=== PATIENT | female | born 1940 | race Caucasian/White ===

== ENCOUNTER → 2017-02-14 | Outpatient (CLI) | payer MEDICARE ==
[~2017-02-14] MED LIST: ASCO500T16 PO; CHOL1000 PO; CLON1TAB3 PO; CRANBERRY SUPPLEMENT PO; HYDR12.56 PO; LISI-461 PO; MULT-506 PO; NIFE10CA20 PO; NITR1CAP16 PO; OXYC1TAB3 PO; PARO1TAB27 PO; PARO1TAB29 PO; PENT100C6 PO; POTA10CA28 PO; PRED1SUS3; SIMV40TA2 PO
[2017-02-14 17:26] LABS: BASO % 0.2 %; BASO ABS # 0.02 K/uL (0-0.2); COMPLETE YES; EOS % 2.4 %; IG% 0.5 %; LYMPH % 26.3 %; LYMPH ABS # 2.65 K/uL (1.2-3.4); MEAN CELL VOLUME 89.7 fL (80-100); MEAN CORPUSCULAR HEMOGLOBIN 30.8 pg (25-34); MEAN CORPUSCULAR HGB CONC 34.3 g/dl (32-36); MEAN PLATELET VOLUME 9.9 fL (7.4-10.4); MONO % 7.4 %; NEUT % 63.2 %; PLATELET COUNT 277 K/uL (130-400); RED BLOOD COUNT 5.13 M/uL (4.2-5.4); WHITE BLOOD COUNT 10.09 K/uL (4.8-10.8)
== END | disposition home or self-care (01) ==
LOC: C.LABBFT 11:16
PROVIDERS: ATTEND Physician Assistant Medical
DX: R73.01 Impaired fasting glucose (principal)

== ENCOUNTER → 2017-02-17 | Outpatient (CLI) | payer MEDICARE ==
[2017-02-17 16:57] LABS: ALT/SGPT 41 U/L (12-78); AST/SGOT 20 U/L (15-37); BLOOD UREA NITROGEN 23 mg/dl (7-18); BUN/CREATININE RATIO 29.1 (10-20); CALCIUM 9.5 mg/dl (8.5-10.1); CARBON DIOXIDE 30 mmol/L (21-32); CHLORIDE 101 mmol/L (98-107); CHOLESTEROL 160 mg/dl (0-200); GLUCOSE 100 mg/dl (70-99); POTASSIUM 3.1 mmol/L (3.5-5.1); SODIUM 141 mmol/L (136-145); TRIGLYCERIDES 93 mg/dl (0-150); VERY LOW DENSITY LIPOPROT CALC 19 mg/dl
[2017-02-17 17:00] LABS: ALB/GLOB RATIO 1.3 (0.9-2); ALKALINE PHOSPHATASE 92 U/L (45-117); CHOLESTEROL/HDL RATIO 2.1; HDL CHOLESTEROL 75 mg/dl; LDL CHOLESTEROL CALCULATED 66 mg/dl
[2017-02-18 06:04] LABS: ESTIMATED AVERAGE GLUCOSE 128 mg/dl; HA1C FLAG Normal (Normal)
== END | disposition home or self-care (01) ==
LOC: C.LABBFT 15:26
PROVIDERS: ATTEND Physician Assistant Medical
DX: E78.5 Hyperlipidemia, unspecified (principal); R73.01 Impaired fasting glucose

== ENCOUNTER → 2017-02-24 | Outpatient (CLI) | payer MEDICARE ==
[2017-02-24 12:30] LABS: BLOOD UREA NITROGEN 20 mg/dl (7-18); BUN/CREATININE RATIO 20.4 (10-20); CALCIUM 9.5 mg/dl (8.5-10.1); CARBON DIOXIDE 32 mmol/L (21-32); CHLORIDE 101 mmol/L (98-107); CREATININE 0.97 mg/dl (0.60-1.20); GLUCOSE 156 mg/dl (70-99); POTASSIUM 3.4 mmol/L (3.5-5.1); SODIUM 142 mmol/L (136-145); URINE APPEARANCE CLEAR (CLEAR); URINE BILIRUBIN NEG (NEG); URINE COLOR DK YELLOW; URINE EPITHELIAL CELL AUTO >30 /lpf (0-5); URINE NITRITE POS (NEG); URINE SPECIFIC GRAVITY 1.018 (1.000-1.030); UROBILINOGEN NEG (NEG)
[2017-02-24 12:40] LABS: MANUAL MICROSCOPIC REQUIRED? NO; REVIEW REQ? NO
== END | disposition home or self-care (01) ==
LOC: C.LABBFT 10:00
PROVIDERS: ATTEND Physician Assistant Medical
DX: E87.6 Hypokalemia (principal); R39.9 Unspecified symptoms and signs involving the genitourinary system

== ENCOUNTER → 2017-03-03 | Outpatient (CLI) | payer MEDICARE ==
[2017-03-03 12:25] LABS: BLOOD UREA NITROGEN 17 mg/dl (7-18); BUN/CREATININE RATIO 20.6 (10-20); CARBON DIOXIDE 31 mmol/L (21-32); CHLORIDE 105 mmol/L (98-107); CREATININE 0.82 mg/dl (0.60-1.20); GLUCOSE 103 mg/dl (70-99); POTASSIUM 3.6 mmol/L (3.5-5.1); SODIUM 142 mmol/L (136-145)
[2017-03-03 12:42] LABS: CALCIUM 9.3 mg/dl (8.5-10.1)
== END | disposition home or self-care (01) ==
LOC: C.LABBFT 10:49
PROVIDERS: ATTEND Physician Assistant Medical
DX: E87.6 Hypokalemia (principal)

== ENCOUNTER → 2017-03-22 | Outpatient (CLI) | payer MEDICARE ==
--- NOTE | 2017-03-23 08:17 | MAMMOGRAPHY REPORT ---
BILATERAL DIGITAL SCREENING MAMMOGRAM WITH CAD: 03/22/2017 CLINICAL HISTORY: Routine screening. Patient has no complaints. TECHNIQUE: Current study was also evaluated with a Computer Aided Detection (CAD) system. Bilatera l CC and MLO views were obtained. COMPARISON: Comparison is made to exams dated: 03/04/2016 mammogram, 12/29/2014 mammogram, 12/25/2013 mammogram, 12/24/2012 mammogram, 12/21/2011 mammogram, and 12/20/2010 mammogram - [facility] enter. BREAST COMPOSITION: The tissue of both breasts is almost entirely fatty. FINDINGS: There is a nodular 4 mm focal asymmetry in the left upper outer quadrant, for which spot compression tomosynthesis views and possible breast ultrasound are recommended for further evaluatio n. The remainder of both breasts are stable compared to prior exams, without suspicious masses, calcifi cations, or areas of architectural distortion noted. IMPRESSION: ACR BI-RADS CATEGORY 0: INCOMPLETE EVALUATION: NEED ADDITIONAL IMAGING EVALUATION Left upper outer quadrant asymmetry, for which additional imaging evaluation is recommended. The pa tient will be called to schedule an appointment. Approximately 10% of breast cancers are not detected with mammography. A negative mammographic repor t should not delay biopsy if a clinically suggestive mass is present. Whitney Dillard M.D. ah/:03/22/2017 17:05:18 Lead Java [id number] Developer: Judy SNIDER(R)(M), [facility] letter sent: Addl Imaging 0 BI-RADS Code: ACR BI-RADS Category 0: Incomplete Evaluation: Need Additional Imaging Evaluation
== END | disposition home or self-care (01) ==
LOC: C.MAMM 14:06
PROVIDERS: ATTEND Internal Medicine
DX: Z12.31 Encounter for screening mammogram for malignant neoplasm of breast (principal); N64.89 Other specified disorders of breast

== ENCOUNTER → 2017-04-03 | Outpatient (CLI) | payer MEDICARE ==
[~2017-04-03] MED LIST changes: -HYDR12.56 PO
--- NOTE | 2017-04-03 13:04 | MAMMOGRAPHY REPORT ---
UNILATERAL LEFT DIGITAL DIAGNOSTIC MAMMOGRAM TOMOSYNTHESIS AND TARGETED LEFT ULTRASOUND: 04/03/2017 CLINICAL HISTORY: 76-year-old woman called back from screening mammography for a 4 mm nodular focal asymmetry in the left upper outer quadrant. TECHNIQUE: Spot compression left CC and MLO digital and tomosynthesis images were obtained. COMPARISON: Comparison is made to exams dated: 03/22/2017 mammogram, 03/04/2016 mammogram, 12/29/2014 mammogram, 12/25/2013 mammogram, 12/24/2012 mammogram, and 12/26/2011 mammogram - [facility]. BREAST COMPOSITION: The tissue of the left breast is almost entirely fatty. FINDINGS: On the spot compression left CC view, there is persistence of a 4.0 x 2.7 mm oval circums cribed mass in the lateral, middle one third of the left breast. No associated architectural distor tion or clustered microcalcification. This is not as well-seen on the spot compression MLO view, bu t was thought to project superiorly based on the full field left MLO view performed 03/22/2017. Fur ther evaluation with ultrasound was performed. Targeted ultrasound was performed in the lateral left breast. In the 3:00 axis, 3 cm from the nippl e, there is an oval parallel circumscribed anechoic cyst versus focal duct ectasia measuring 2.4 x 1 .0 x 3.3 mm. This may correlate with the mammographic mass but given the small size, it does not me et all the criteria for a simple cyst and a short interval follow-up diagnostic mammogram and ultras ound is recommended to ensure stability in 6 months. IMPRESSION: ACR-BI-RADS CATEGORY 3: PROBABLY BENIGN, TARGETED ULTRASOUND ACR-BI-RADS CATEGORY 3: AK OBABLY BENIGN The 4 mm nodular focal asymmetry in the left upper outer quadrant is thought to correlate with a juice ign simple cyst versus duct ectasia in the 3:00 left breast identified on ultrasound. However, give n the small size it does not meet all the criteria for a simple cyst and a short interval follow-up diagnostic left mammogram and repeat targeted ultrasound is recommended to ensure stability in 6 mon ths. These results and recommendations were discussed with the patient at the time of the exam. She tent atively scheduled the follow-up appointment prior to leaving our department. Approximately 10% of breast cancers are not detected with mammography. A negative mammographic repor t should not delay biopsy if a clinically suggestive mass is present. Anahi Mauricio M.D. ay/:04/03/2017 12:23:59 Vocational Evaluator: Lily ROMERO)(Basilio), [facility] letter sent: Follow Up Recommended 3 BI-RADS Code: ACR-BI-RADS Category 3: Probably Benign Ultrasound BI-RADS: ACR-BI-RADS Category 3: P robably Benign
== END | disposition home or self-care (01) ==
LOC: C.MAMM 11:28
PROVIDERS: ATTEND Internal Medicine
DX: R92.8 Other abnormal and inconclusive findings on diagnostic imaging of breast (principal)

== ENCOUNTER → 2017-04-11 | Outpatient (CLI) | payer MEDICARE | END | disposition home or self-care (01) | LOC: C.LABSPEC 17:42 | PROVIDERS: ATTEND Nurse Practitioner | DX: R39.9 Unspecified symptoms and signs involving the genitourinary system (principal) ==

== ENCOUNTER → 2017-04-13 | Outpatient (CLI) | payer MEDICARE | END | disposition home or self-care (01) | LOC: C.LABBFT 09:54 | PROVIDERS: ATTEND Nurse Practitioner | DX: R39.9 Unspecified symptoms and signs involving the genitourinary system (principal) ==

== ENCOUNTER → 2017-04-26 | Outpatient (CLI) | payer MEDICARE ==
[2017-04-26 17:46] LABS: URINE APPEARANCE CLEAR (CLEAR); URINE BILIRUBIN NEG (NEG); URINE COLOR DK YELLOW; URINE EPITHELIAL CELL AUTO >30 /lpf (0-5); URINE NITRITE NEG (NEG); URINE PH 7.5 (4.5-7.5); URINE SPECIFIC GRAVITY 1.021 (1.000-1.030); UROBILINOGEN NEG (NEG)
[2017-04-26 17:50] LABS: MANUAL MICROSCOPIC REQUIRED? NO; REVIEW REQ? YES
== END | disposition home or self-care (01) ==
LOC: C.LABBFT 11:55
PROVIDERS: ATTEND Nurse Practitioner
DX: R39.9 Unspecified symptoms and signs involving the genitourinary system (principal)

== ENCOUNTER → 2017-05-29 | Outpatient (CLI) | payer MEDICARE ==
[~2017-05-29] MED LIST changes: -LISI-461 PO; -NITR1CAP16 PO; -PARO1TAB27 PO
== END | disposition home or self-care (01) ==
LOC: C.LABSPEC 17:27
PROVIDERS: ATTEND Urology
DX: N30.10 Interstitial cystitis (chronic) without hematuria (principal)

== ENCOUNTER → 2017-08-10 | Outpatient (CLI) | payer MEDICARE ==
[2017-08-10 17:29] LABS: URINE APPEARANCE CLEAR (CLEAR); URINE BILIRUBIN NEG (NEG); URINE COLOR YELLOW; URINE EPITHELIAL CELL AUTO 20-30 /lpf (0-5); URINE NITRITE NEG (NEG); URINE PH 8.5 (4.5-7.5); UROBILINOGEN NEG (NEG)
[2017-08-10 17:31] LABS: MANUAL MICROSCOPIC REQUIRED? NO; REVIEW REQ? NO
== END | disposition home or self-care (01) ==
LOC: C.LABBFT 12:57
PROVIDERS: ATTEND Physician Assistant Medical
DX: R39.9 Unspecified symptoms and signs involving the genitourinary system (principal)

== ENCOUNTER → 2017-08-30 | Outpatient (CLI) | payer MEDICARE | END | disposition home or self-care (01) | LOC: C.LABSPEC 17:08 | PROVIDERS: ATTEND Urology | DX: N30.10 Interstitial cystitis (chronic) without hematuria (principal) ==

== ENCOUNTER → 2017-09-26 | Outpatient (CLI) | payer MEDICARE ==
[2017-09-26 17:33] LABS: BLOOD UREA NITROGEN 12 mg/dl (7-18); BUN/CREATININE RATIO 16.6 (10-20); CALCIUM 9.2 mg/dl (8.5-10.1); CARBON DIOXIDE 26 mmol/L (21-32); CHLORIDE 107 mmol/L (98-107); CREATININE 0.73 mg/dl (0.60-1.20); GLUCOSE 80 mg/dl (70-99); SODIUM 143 mmol/L (136-145)
== END | disposition home or self-care (01) ==
LOC: C.LABBFT 13:53
PROVIDERS: ATTEND Internal Medicine
DX: R63.4 Abnormal weight loss (principal); M85.80 Other specified disorders of bone density and structure, unspecified site; E87.6 Hypokalemia

== ENCOUNTER → 2017-09-29 | Outpatient (CLI) | payer MEDICARE ==
[~2017-09-29] MED LIST changes: +GADAVIST IV PRN
--- NOTE | 2017-09-29 08:47 | DIAGNOSTIC IMAGING REPORT ---
LUMBAR SPINE COMBINATION CLINICAL HISTORY: 76 years-old Female presenting with M48.00 Spinal ksskholhV65.9 Chronic back painR29.898 Weakness, difficulty walking or standing. TECHNIQUE: Multisequence, multiplanar MR imaging of the lumbar spine was performed before and after the administration of intravenous contrast. IV contrast: 7 mL of Gadavist. COMPARISON: 06/13/2016. FINDINGS: Straightening of normal lumbar lordosis. Postsurgical changes of laminectomy defects from L2 through L5 noted, unchanged. Vertebral body heights maintained. Slight anterolisthesis of L3 on L4 and L4 on L5 unchanged from prior. Incidental note made of a hemangioma in the L3 vertebral body. Interval development of bony edema noted at the L1-2 level, significantly increased from prior. No significant fluid within the L1-2 disc space. There is been overall significant height loss of the L1-2 disc with new extrusion of disc material with cranial migration resulting in significant anterior thecal sac effacement at the level of L1-2 and new asymmetric right anterior thecal sac and right lateral recess effacement immediately cranial to L1-2 secondary to disc extrusion. No significant flattening of the spinal cord at this level, although there is near complete effacement of CSF in part secondary to accompanying facet arthropathy and ligamentum flavum thickening. Moderate right and mild neural foraminal narrowing also noted at L1-2. The remaining levels demonstrate disc desiccation of L4-5 and L5-S1 with mild height loss of L5-S1. No other sites of significant neural foraminal despite slight anterolisthesis as described above. Adequate posterior decompression at the operative levels. The spinal cord in this slightly low at the inferior endplate of L2. Cauda equina unchanged in morphology. Postcontrast imaging does not demonstrate abnormal enhancement of the spinal cord or nerve roots. Intense enhancement of the L2-3 level. Mild paraspinal enhancement at this level also noted. Superficial subcutaneous edema in the back has decreased from prior. IMPRESSION: 1. Significant bony edema at the L1-2 level with associated enhancement. Given the absence of significant fluid in the L1-2 disc and only minimal paraspinal enhancement, this is favored to be degenerative in etiology. Further evidence of a degenerative etiology is supported by the development of new disc extrusion at this level. This results in increased effacement of the right lateral recess immediately cranial to the L1-2 level and persistent moderate spinal canal stenosis at the L1-2 disc level. Correlate clinically to exclude infectious symptoms. 2. Postsurgical changes of laminectomy defects from L2 through L5. Electronically signed by: Shakir Burroughs M.D. 09/29/2017 8:45 AM Dictated Date/Time: 09/29/2017 8:21 AM
== END | disposition home or self-care (01) ==
LOC: C.MRIBC 07:04
PROVIDERS: ATTEND Internal Medicine
DX: M48.061 Spinal stenosis, lumbar region without neurogenic claudication (principal); M51.26 Other intervertebral disc displacement, lumbar region; R29.898 Other symptoms and signs involving the musculoskeletal system

== ENCOUNTER → 2017-10-04 | Outpatient (CLI) | payer MEDICARE ==
[~2017-10-04] MED LIST changes: -GADAVIST IV PRN
--- NOTE | 2017-10-06 08:14 | MAMMOGRAPHY REPORT ---
UNILATERAL LEFT DIGITAL DIAGNOSTIC MAMMOGRAM TOMOSYNTHESIS WITH CAD AND TARGETED LEFT ULTRASOUND: CLINICAL HISTORY: 76-year-old woman presents for follow-up in the left breast for a 4 mm focal asymme try in the upper outer quadrant. TECHNIQUE: Left breast tomosynthesis in addition to standard 2D mammography was performed. Current st udy was also evaluated with a Computer Aided Detection (CAD) system. COMPARISON: Comparison is made to exams dated: 04/03/2017 ultrasound, 04/03/2017 mammogram, 03/22/2017 mammogram, 03/04/2016 mammogram, 12/29/2014 mammogram, and 12/25/2013 mammogram - [facility]. BREAST COMPOSITION: The tissue of the left breast is almost entirely fatty. FINDINGS: The previously observed 4 mm focal asymmetry in the left upper outer middle one third of th e breast is less conspicuous on the current CC and MLO 2-D and tomosynthesis images. On the CC tomos ynthesis slice 26/70, there is a possible oval circumscribed 4 mm mass versus normal glandular tissue . No associated calcification or architectural distortion. There are a few stable punctate microcal cifications in the left breast. No new suspicious mass, area of architectural distortion, asymmetry or cluster of suspicious microcalcifications is seen. Targeted ultrasound was performed throughout the lateral left breast. In the 3:00 left breast, 3 cm from the nipple, there is an oval parallel hypoechoic to anechoic benign-appearing cyst versus focal duct ectasia, measuring 4.0 x 1.2 x 4.5 mm. This may correlate with the possible mammographic mass a nd has a benign sonographic appearance. This also appears similar to the prior ultrasound from 04/03. There is no suspicious solid mass identified on targeted ultrasound. IMPRESSION: ACR BI-RADS CATEGORY 2: BENIGN, TARGETED ULTRASOUND ACR BI-RADS CATEGORY 2: BENIGN A 4 mm focal asymmetry seen in the left upper outer quadrant is less prominent on the current 2-D melinda mograms. There is a possible benign-appearing low-density circumscribed oval 4 mm mass in the latera l left breast on the CC tomosynthesis images, which may correlate with a benign cyst versus focal vega t ectasia in the 3:00 left breast on ultrasound. Overall, both the mammographic and sonographic find ings are considered benign and would recommend return to annual screening mammography schedule (due i n March 2018). These results recommendations were discussed with the patient and her daughter at the time of the exa m. Approximately 10% of breast cancers are not detected with mammography. A negative mammographic report should not delay biopsy if a clinically suggestive mass is present. Anahi Mauricio M.D. ay/:10/04/2017 14:30:08 Electric Sign Wirer: Stacey Smith RT(R)(M), [facility] letter sent: Normal 1/2 BI-RADS Code: ACR BI-RADS Category 2: Benign Ultrasound BI-RADS: ACR BI-RADS Category 2: Benign
== END | disposition home or self-care (01) ==
LOC: C.MAMM 12:27
PROVIDERS: ATTEND Obstetrics & Gynecology
DX: N64.89 Other specified disorders of breast (principal)

== ENCOUNTER → 2017-10-23 | Day surgery (SDC) | payer MEDICARE ==
[2017-10-10 10:33] VITALS: Ht 163.8 cm; Wt 70.0 kg
[~2017-10-23] VITALS: Ht 163.8 cm; Wt 70.0 kg
[~2017-10-23] MED LIST changes: +LIDOCAINE HCL 2% 2 ML VIAL (20MG/ML) ONE; +LISI-461 PO; -MULT-506 PO; -NIFE10CA20 PO; +NITR1CAP16 PO; -OXYC1TAB3 PO; +PARO1TAB27 PO; -PARO1TAB29 PO; -PENT100C6 PO; -POTA10CA28 PO; -PRED1SUS3; +PROPOFOL IV EMULSION 10 MG/ML 20 ML VIAL IV ONE; +SODIUM CHLORIDE 0.9% 500ML 500 ML IV ONE
[2017-10-23 10:19] VITALS: TEMP 36.4
--- NOTE | 2017-10-23 10:32 | Endo History and Physical ---
History & Physical Date of Service: Oct 23, 2017. Chief Complaint: screening Referring Physician: Dr. Jones History of Present Illness 77 yo CF who presents for colonoscopy secondary to family history of colon cancer. Past Medical History High Cholesterol, Hypertension Past Surgical History Hx Cardiac Surgery: No Hx Internal Defibrillator: No Hx Pacemaker: No Hx Abdominal Surgery: Yes (MERY BSO, LAP ALONA) Hx of Implantable Prosthesis: No Hx Post-Op Nausea and Vomiting: No Hx Cancer Surgery: No Hx Thoracic Surgery: No Hx Orthopedic: Yes (LEFT RCR) Hx Urinary Tract Surgery: No Family History Colon CA Social History Smoking Status: Never Smoker Hx Substance Use: No Hx Alcohol Use: No Allergies Coded Allergies: Sulfa Antibiotics (Unverified Allergy, Unknown, BLISTERS IN MOUTH, ) Current Medications Reported Home Medications Medications Dose Route/Sig Max Daily Dose Days Date Category Klonopin (Clonazepam) 1 Mg Tab 1 Mg PO HS PRN 10/10/17 Reported Macrobid (Nitrofurantoin Macrocrystals) 100 Mg Cap 100 Mg PO QPM 10/10/17 Reported Zestril (Lisinopril) 10 Mg Tab 10 Mg PO QAM 10/10/17 Reported [Cranberry Supplement] 1 Tab PO QAM 04/14/16 Reported Vitamin D3 (Cholecalciferol) 1,000 Unit Tab 1 Tab PO QAM 90 04/14/16 Reported Ascorbic Acid 500 Mg Tab 500 Mg PO QAM 04/14/16 Reported Zocor (Simvastatin) 40 Mg Tab 40 Mg PO QPM 12/15/08 Reported Vital Signs Weight (Kilograms): 70 Height (Feet): 5 Height (Inches): 4.5 Date Time Temp Pulse Resp B/P (MAP) Pulse Ox O2 Delivery O2 Flow Rate FiO2 10/23/17 10:19 36.4 94 18 142/63 (89) 96 Room Air Physical Exam General Appearance: WD/WN, no apparent distress Respiratory/Chest: Auscultation: breath sounds normal Cardiovascular: Heart Auscultation: RRR Abdomen: Bowel Sounds: normal Inspection & Palpation: soft, non-distended, no tenderness, guarding & rebound Assessment and Plan Assessment: 77 yo CF who presents for colonoscopy secondary to family history of colon cancer. Plan: Proceed with colonoscopy.
--- NOTE | 2017-10-23 11:22 | Discharge Instructions ---
Endoscopy Patient Instructions Date / Procedure(s) Performed Oct 23, 2017. Colonoscopy Allergy Information Coded Allergies: Sulfa Antibiotics (Unverified Allergy, Unknown, BLISTERS IN MOUTH, ) Discharge Date / Findings Oct 23, 2017. Diverticulosis Internal hemorrhoids Medication Instructions OK to resume all medications today as prescribed Reported Home Medications Medications Dose Route/Sig Max Daily Dose Days Date Category Klonopin (Clonazepam) 1 Mg Tab 1 Mg PO HS PRN 10/10/17 Reported Macrobid (Nitrofurantoin Macrocrystals) 100 Mg Cap 100 Mg PO QPM 10/10/17 Reported Zestril (Lisinopril) 10 Mg Tab 10 Mg PO QAM 10/10/17 Reported [Cranberry Supplement] 1 Tab PO QAM 04/14/16 Reported Vitamin D3 (Cholecalciferol) 1,000 Unit Tab 1 Tab PO QAM 90 04/14/16 Reported Ascorbic Acid 500 Mg Tab 500 Mg PO QAM 04/14/16 Reported Zocor (Simvastatin) 40 Mg Tab 40 Mg PO QPM 12/15/08 Reported Provider Instructions Activity Restrictions - No exercising or heavy lifting for 24 hours. - Do not drink alcohol the day of the procedure. - Do not drive a car or operate machinery until the day after the procedure. - Do not make any important decisions or sign important papers in 24 hours after the procedure. Following Day: - Return to full activity which may include returning to work/school. Diet Start your diet with liquids and light foods (jello, soup, juice, toast). Then eat your usual diet if not nauseated. Treatment For Common After Affects For mild abdominal pain, bloating, or excessive gas: - Rest - Eat lightly - Lie on right side Follow-Up Information Follow-up with Dr. Jones as scheduled Anesthesia Information What You Should Know You have had a procedure that required some medicine to reduce anxiety and discomfort. This treatment is called moderate sedation. After receiving the treatment, you may be sleepy, but you will be able to breathe on your own. The effects of the treatment may last for several hours. Follow these instructions along with Activity/Diet recommendations noted above: * Do NOT do anything where dizziness or clumsiness would be dangerous. * Rest quietly at home today, then you can be up and about tomorrow. * Have a responsible person stay with you the rest of today. * You may have had an I.V. today. If so, you may take the dressing off later today. Recommendations Call your doctor if: * Trouble breathing * Continuous vomiting for more than 24 hours * Temperature above 101 degrees * Severe abdominal pain or bloating * Pain not relieved by pain medicine ordered * There is increased drainage or redness from any incision * A large amount of rectal bleeding greater than 2-3 tablespoons. (If you had a polyp/s removed or have hemorrhoids, a small amount of blood - from the rectum is to be expected.) * You have any unanswered questions or concerns. IN THE EVENT OF A SERIOUS EMERGENCY, GO TO THE NEAREST EMERGENCY ROOM Your discharge instructions were prepared by provider Alex Bryan. Patient Instructions Signature Page Alysia Meza Patient (or Guardian) Signature/Date: I have read and understand the instructions given to me by my caregivers. Caregiver/RN/Doctor Signature/Date: The above-named patient and/or guardian has received patient instructions on this date. + Original Patient Signature Page (only) stays with chart. Please make copy for patient.
--- NOTE | 2017-10-23 11:28 | GI REPORT ---
Procedure Date: 10/23/2017 10:47 AM Procedure: Colonoscopy Indications: Family history of colon cancer in a first-degree relative Medicines: Monitored Anesthesia Care Complications: No immediate complications. Estimated Blood Loss: Estimated blood loss: none. Procedure: Pre-Anesthesia Assessment: - Prior to the procedure, a History and Physical was performed, and patient medications and allergies were reviewed. The patient's tolerance of previous anesthesia was also reviewed. The risks and benefits of the procedure and the sedation options and risks were discussed with the patient. All questions were answered, and informed consent was obtained. Prior Anticoagulants: The patient has taken no previous anticoagulant or antiplatelet agents. ASA Grade Assessment: III - A patient with severe systemic disease. After reviewing the risks and benefits, the patient was deemed in satisfactory condition to undergo the procedure. After I obtained informed consent, the scope was passed under direct vision. Throughout the procedure, the patient's blood pressure, pulse, and oxygen saturations were monitored continuously. The scope was introduced through the anus and advanced to the terminal ileum. The colonoscopy was performed without difficulty. The patient tolerated the procedure well. The quality of the bowel preparation was good. The terminal ileum, the appendiceal orifice and the rectum were photographed. Findings: The perianal and digital rectal examinations were normal. Multiple small-mouthed diverticula were found in the sigmoid colon. Non-bleeding internal hemorrhoids were found during retroflexion. The hemorrhoids were small. Impression: - Diverticulosis in the sigmoid colon. - Non-bleeding internal hemorrhoids. - No specimens collected. Recommendation: - Resume previous diet. - Continue present medications. - No repeat colonoscopy due to age and the absence of advanced adenomas. - Return to primary care physician as previously scheduled. Alex Bryan DO 10/23/2017 11:28:11 AM This report has been signed electronically. Note Initiated On: 10/23/2017 10:47 AM I attest to the content of the Intraoperative Record and orders documented therein, exceptions below
[2017-10-23 11:37] VITALS: BP 132/78; PULSE 71; O2SAT 98
--- NOTE | 2017-10-23 12:12 | Anesthesiology Progress Note ---
Anesthesia Post Op Note Date & Time Oct 23, 2017 at 12:12 Vital Signs Pain Intensity: 0 Vital Signs Past 12 Hours Date Time Temp Pulse Resp B/P (MAP) Pulse Ox O2 Delivery O2 Flow Rate FiO2 10/23/17 11:37 71 18 132/78 (96) 98 Room Air 10/23/17 11:22 74 18 125/72 (89) 97 Room Air 10/23/17 11:07 85 16 109/68 (82) 96 Room Air 10/23/17 10:19 36.4 94 18 142/63 (89) 96 Room Air Notes Mental Status: alert / awake / arousable, participated in evaluation Pt Amnestic to Procedure: Yes Nausea / Vomiting: adequately controlled Pain: adequately controlled Airway Patency, RR, SpO2: stable & adequate BP & HR: stable & adequate Hydration State: stable & adequate Anesthetic Complications: no major complications apparent
== END | disposition home or self-care (01) ==
LOC: C.GI 09:54
PROVIDERS: ATTEND Internal Medicine
DX: Z12.11 Encounter for screening for malignant neoplasm of colon (principal); Z80.0 Family history of malignant neoplasm of digestive organs; K57.30 Diverticulosis of large intestine without perforation or abscess without bleeding; K64.8 Other hemorrhoids; I10 Essential (primary) hypertension; E78.00 Pure hypercholesterolemia, unspecified; Z79.899 Other long term (current) drug therapy

== ENCOUNTER → 2017-10-26 | Outpatient (CLI) | payer MEDICARE ==
[~2017-10-26] MED LIST changes: -LIDOCAINE HCL 2% 2 ML VIAL (20MG/ML) ONE; -PARO1TAB27 PO; -PROPOFOL IV EMULSION 10 MG/ML 20 ML VIAL IV ONE; -SODIUM CHLORIDE 0.9% 500ML 500 ML IV ONE
== END | disposition home or self-care (01) ==
LOC: C.MAMM 09:48
PROVIDERS: ATTEND Internal Medicine
DX: M85.839 Other specified disorders of bone density and structure, unspecified forearm (principal); Z13.820 Encounter for screening for osteoporosis

== ENCOUNTER → 2017-11-27 | Outpatient (CLI) | payer MEDICARE ==
[2017-11-27 17:50] LABS: BLOOD UREA NITROGEN 14 mg/dl (7-18); CARBON DIOXIDE 28 mmol/L (21-32); CREATININE 0.73 mg/dl (0.60-1.20); GLUCOSE 112 mg/dl (70-99); POTASSIUM 4.5 mmol/L (3.5-5.1); SODIUM 140 mmol/L (136-145)
== END | disposition home or self-care (01) ==
LOC: C.LABBFT 11:27
PROVIDERS: ATTEND Nurse Practitioner
DX: I10 Essential (primary) hypertension (principal)

== ENCOUNTER → 2018-02-27 | Outpatient (CLI) | payer MEDICARE ==
--- NOTE | 2018-02-27 13:40 | DIAGNOSTIC IMAGING REPORT ---
LUMBAR SPINE 2 VIEWS HISTORY: Postop. Recent lumbar spine surgery. COMPARISON: Lumbar spine 05/17/2016. FINDINGS: There is no fracture. No subluxation. Cholecystectomy. The sacrum appears intact. Posterior decompression fusion from L1 through L5. Bone graft material within the lumbar spine facets. This results in fusion of the facets of the lumbar spine. There is 6 cm of anterolisthesis of L4 and L5. This remains unchanged. Mild disc space narrowing at L2-L3, L3-L4, L4-L5, unchanged. Moderate to space narrowing at L5-S1. Severe disc space narrowing at L1-L2 with endplate sclerosis. This has progressed in the interval. IMPRESSION: 1. No fractures within the lumbar spine. 2. Stable grade I anterolisthesis of L4 on L5. 3. Severe disc space narrowing at L1-L2 which has significantly progressed. There is also interval development of endplate sclerosis at this level. The sclerosis is nonspecific but favors the progressive degenerative change. 4. Postoperative changes as described above. Electronically signed by: Major Torre M.D. 02/27/2018 1:39 PM Dictated Date/Time: 02/27/2018 1:35 PM
== END | disposition home or self-care (01) ==
LOC: C.RAD 12:59
PROVIDERS: ATTEND Neurological Surgery
DX: Z48.89 Encounter for other specified surgical aftercare (principal); M51.26 Other intervertebral disc displacement, lumbar region

== ENCOUNTER 2023-12-31 11:56 | Observation (INO) ==
--- NOTE | 2023-12-31 12:41 | Emergency Department Note ---
Impression & Plan Pelvic pain, Dysuria, Hydronephrosis, Hematuria, Leukocytosis ED Provider Note NAME: IGOR GOODEN AGE: 83 SEX: F : 1940 ARRIVES VIA: Walk-In INFORMANT: [Patient] ED PROVIDER(S): [Iban Adkins MD] CHIEF COMPLAINT: Urinary symptoms HISTORY OF PRESENT ILLNESS: The patient is an 83-year-old female with a history of UTI as well as interstitial cystitis. She is on Keflex daily to prevent UTI. Several days ago, she began having some urinary symptoms and some discomfort with urination. She increased her Keflex dosing. The patient states that she has been shaky and weak. No fever. She has noticed some pain in the area of the bladder and sometimes some burning at the end of urination. The patient states that in the last 24 hours, the urine has been bloody. There is no flank pain per se although she seems to hurt in both the right and left groin. She believes that she is urinating more frequently and less at a time. She has not had vomiting. No cough or cold or congestion. She is not on any blood thinning agents. PMHx/PSHx/Social Hx: See Below PHYSICAL EXAM: GENERAL: Patient is in no acute distress. HEENT: No acute trauma, normocephalic atraumatic, mucous membranes moist, no nasal congestion. NECK: No stridor, no adenopathy, no meningismus, trachea is midline. LUNGS: Clear to auscultation bilaterally, no wheeze, no rhonchi, breath sounds equal. HEART: Without murmurs gallops or rubs, regular rate and rhythm. ABDOMEN: Soft, tender in the area of the bladder, no distention EXTREMITIES: No cyanosis, full range of motion of all the joints without pain or difficulty. NEUROLOGIC: Oriented x 3, no acute motor or sensory deficits, no focal weakness. SKIN: No jaundice, no diaphoresis. Back: No flank discomfort to percussion. DIFFERENTIAL DIAGNOSIS: Interstitial cystitis, hemorrhagic cystitis, ureteral stone, bladder stone, pyelonephritis, renal failure, coagulopathy, among others. EMERGENCY DEPARTMENT PROCEDURES: MEDICAL DECISION MAKING: There is a mild leukocytosis, this could be consistent with infection or just the stress of her presentation. There is a normal hemoglobin and platelet count. No renal failure or significant electrolyte abnormality. No concerning liver enzyme elevation. No evidence for pancreatitis but urinalysis shows hematuria, no obvious infection. Abdominal and pelvis CT shows a proximal 6 mm left ureteral stone causing hydronephrosis. The patient received IV saline, she was given oral Flomax, IV ceftriaxone and IV Tylenol. The patient presents with gross hematuria, pelvic discomfort and dysuria. She appears to have a ureteral stone causing her issue. Given her age, given the size of the stone and the stones location, I do think a hospital stay is warranted. The patient may require urologic intervention. I spoke with the patient and case management, the on-call hospitalist was consulted. Prior/Outside records/notes reviewed: Urology note from 09/06/2023 discussing her chronic interstitial cystitis and history of frequent UTI and the plan moving forward. Imaging/x-ray results per my interpretation: Chronic Medical/Social conditions affecting care: Advanced age. Care/Management discussed with: Case management, the on-call hospitalist. Level of care consideration(s): After review of the information above and other included data: --I believe the patient requires escalation of care to admission DISPOSITION: Admission Past Med/Surg History Medical History Lumbar facet joint syndrome Lumbar postlaminectomy syndrome Environmental and seasonal allergies Hypertension Hyperlipidemia Hx of deep venous thrombosis hx 30 yrs ago right calf Spinal stenosis Internal hemorrhoids Diverticulosis Depression with anxiety Deep vein thrombosis of lower extremity Chronic interstitial cystitis Chronic back pain Surgical History History of esophagogastroduodenoscopy (EGD) Hx of colonoscopy Hx of arthroscopy of shoulder History of cataract surgery approx 2014 History of arthroscopic knee surgery History of total hysterectomy History of back surgery x 3 History of cholecystectomy Family History Brother Colorectal cancer Sister Colorectal cancer Father Myocardial infarction Mother Cardiac disorder Denies family history of Ovarian cancer Prostate cancer Diabetes Breast cancer Social History Smoking Status: Never smoker Second Hand Exposure: No; Do You Dip or Chew Tobacco: No; Hx Alcohol Use: No Hx Substance Use: No Preferred Language: Armenian Communication Ability: Effective Visual Impairment: No Limitations Hearing Ability: Normal [employer] Plant Supervisor Required: No Beliefs That Will Affect Care: None marital status: / Current Living Situation: Alone current occupational status: retired 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 Feels Safe at Home: Yes Childhood Exposure to Second-Hand Smoke: No Diet: regular caffeine: Yes Dental Care, Regularly: Yes Physical Activity Frequency: Does not Exercise Seatbelt Use: always Sunscreen Use: Yes Allergies Allergies Allergy/AdvReac Type Severity Reaction Status Date / Time Sulfa (Sulfonamide Allergy Unknown BLISTERS Verified 10/10/23 13:09 Antibiotics) IN MOUTH Home Meds Home Medications Medication Instructions Recorded Confirmed ascorbic acid (vitamin C) 500 mg 500 mg PO QAM 06/19/19 12/31/23 tablet cholecalciferol (vitamin D3) 50 4,000 units PO DAILY 06/19/19 12/31/23 mcg (2,000 unit) tablet Previous Rx's Medication Instructions Recorded bupropion HCl 150 mg 24 hr tablet, 150 mg PO DAILY #90 tabs 04/17/23 extended release lisinopril 20 mg tablet 20 mg PO DAILY #90 tabs 05/09/23 citalopram 10 mg tablet 10 mg PO DAILY #90 tabs 05/29/23 vibegron 75 mg tablet (Gemtesa) 75 mg PO DAILY #90 tabs 08/14/23 simvastatin 40 mg tablet 40 mg PO HS #90 tabs 09/19/23 clonazepam 1 mg tablet 1 mg PO Q12H PRN anxiety #180 tabs 11/03/23 cephalexin 250 mg capsule 250 mg PO DAILY #90 caps 11/22/23 Results & Data (ED) Vital Signs Vital Signs - 24 hr 12/31/23 11:59 12/31/23 13:00 12/31/23 14:41 Temperature 36.3 C L Temperature Source Temporal Artery Scan Pulse Rate 99 H Pulse Rate [Right Finger] 70 70 Pulse Rhythm [Right Finger] Regular Regular Pulse Strength [Right Finger] Normal Normal Respiratory Rate 18 17 17 Respiratory Effort / Characteristics Non-Labored Spontaneous Non-Labored Spontaneous Non-Labored Spontaneous Respiratory Depth Normal Normal Normal Respiratory Pattern Regular Blood Pressure 158/100 H Blood Pressure [Right Arm] 165/94 H 161/75 H Blood Pressure Mean 119 Blood Pressure Mean [Right Arm] 117 103 Blood Pressure Position [Right Arm] Sitting Sitting Pulse Oximetry 96 97 95 Oxygen Delivery Method Room Air Room Air Room Air Sepsis Recent Fever Within 48 Hours Yes Sepsis New/Unexplained Change in Mental Status N/A Sepsis Action Taken by Nursing No Action Required Home Medications Current Medication List: was personally reviewed by me Laboratory Data Attestation: I reviewed the patient's lab results. 12/31/23 12:35 12/31/23 12:35 Lab Results 12/31/23 Range/Units 12:35 WBC 11.04 H (4.8-10.8) K/ul RBC 4.91 (4.20-5.40) M/uL Hgb 15.4 (12.0-16.0) g/dl Hct 46.2 (37.0-47.0) % MCV 94.1 (80.0-100.0) fL MCH 31.4 (25.0-34.0) pg MCHC 33.3 (32.0-36.0) g/dL RDW Std Deviation 46.8 H (36.4-46.3) fL RDW Coeff of Natali 13.5 (11.5-14.5) % Plt Count 258 (130-400) K/uL MPV 9.3 L (9.4-12.4) fL Immature Gran % (Auto) 0.9 % Neut % (Auto) 70.1 % Lymph % (Auto) 18.0 % [place] % (Auto) 7.0 % Eos % (Auto) 3.5 % Baso % (Auto) 0.5 % Neut # (Auto) 7.74 H (1.40-6.50) K/uL Lymph # (Auto) 1.99 (1.20-3.40) K/uL [place] # (Auto) 0.77 H (0.11-0.59) K/uL Eos # (Auto) 0.39 (0.00-0.50) K/uL Baso # (Auto) 0.05 (0.00-0.20) K/uL Immature Gran # (Auto) 0.10 (0.01-0.20) K/uL Sodium 140 (136-145) mmol/L Potassium 3.7 (3.5-5.1) mmol/L Chloride 106 (98-107) mmol/L Carbon Dioxide 26 (21-32) mmol/L Anion Gap 8 (3-11) BUN 15 (6-23) mg/dl Creatinine 0.71 (0.6-1.2) mg/dl Est Cr Clr Drug Dosing 55.8 ml/min Est GFR ( Amer) 90.0 ml/min Est GFR (Non-Af Amer) 77.7 ml/min BUN/Creatinine Ratio 21.1 H (10-20) Glucose 114 H (70-99(Fasting)) mg/dl Calcium 9.4 (8.6-10.3) mg/dl Total Bilirubin 0.6 (0.2-1.0) mg/dl AST 16 (13-39) U/L ALT 19 (7-52) U/L Alkaline Phosphatase 53 (34-104) U/L Total Protein 6.9 (6.0-8.3) gm/dl Albumin 4.4 (3.4-5.0) gm/dl Globulin 2.5 (2.5-4.0) gm/dl Albumin/Globulin Ratio 1.8 (0.9-2) Lipase 4 L (11-82) U/L Urine Color Red Urine Appearance Cloudy A (Clear) Urine pH 5.5 (4.5-7.5) Ur Specific [place] >= 1.030 (1.000-1.030) Urine Protein 2+ H (Negative) Urine Glucose (UA) Negative (Negative) Urine Ketones Negative (Negative) Urine Blood 3+ H (Negative) Urine Nitrite Negative (Negative) Urine Bilirubin Negative (Negative) Urine Urobilinogen Negative (Negative) Ur Leukocyte Esterase Negative (Negative) Urine RBC >30 H (0-4) /hpf Urine WBC 5-10 H (0-5) /hpf Ur Epithelial Cells 5-10 H (0-5) /lpf Calcium Oxalate Crystal Present A (None Prsent) Urine Bacteria 1+ H (Negative) Urine Mucus Present A (None Prsent) Administered Medications Discontinued Medications Sodium Chloride (Nss) 500 mls @ 999 mls/hr IV .Q31M STA Stop: 12/31/23 12:52 Last Infusion: 12/31/23 13:36 Dose: Infused Documented By: Admin: 12/31/23 13:04 Dose: 999 mls/hr Documented By: ANJALI Ceftriaxone Sodium (Rocephin) 2,000 mg in 50 mls @ 100 mls/hr IV NOW STA Stop: 12/31/23 14:20 Last Admin: 12/31/23 14:55 Dose: 100 mls/hr Documented By: ANJALI Acetaminophen (Ofirmev) 1,000 mg in 100 mls @ 400 mls/hr IV NOW STA Stop: 12/31/23 14:05 Last Infusion: 12/31/23 14:55 Dose: Infused Documented By: Admin: 12/31/23 14:01 Dose: 400 mls/hr Documented By: ANJALI Sodium Chloride (Nss) 500 mls @ 999 mls/hr IV .Q31M ONE Stop: 12/31/23 14:21 Last Infusion: 12/31/23 14:55 Dose: Infused Documented By: Admin: 12/31/23 14:02 Dose: 999 mls/hr Documented By: ANJALI Tamsulosin HCl (Tamsulosin Hcl 0.4 Mg Cap) 0.4 mg PO NOW ONE Stop: 12/31/23 13:52 Last Admin: 12/31/23 14:01 Dose: 0.4 mg Documented By: ANJALI Imaging Data Radiologist's Impression: Abdomen/Pelvis CT 12/31/23 12:22 CT OF THE ABDOMEN AND PELVIS WITHOUT CONTRAST CLINICAL HISTORY: poss ureteral stone COMPARISON STUDY: Renal ultrasound August 01, 2023. CT of the abdomen and pelvis October 07, 2011. TECHNIQUE: Axial images of the abdomen and pelvis were obtained without IV contrast. Images were reviewed in the axial, sagittal, and coronal planes. Automated exposure control was utilized for the study. A dose lowering technique was utilized adhering to the principles of ALARA. FINDINGS: A 5 mm right middle lobe nodule is unchanged since CT of October 07, 2011. This is benign. No pneumatosis, free air or portal venous gas is present. A 6 mm proximal left ureteral calculus at or just distal to the ureteropelvic junction results in mild left hydronephrosis. There is mild left periureteral stranding. Several additional bilateral renal calculi measure up to 4 mm. There are no right ureteral calculi. There is no right hydronephrosis. Unenhanced images of the liver, spleen, right adrenal gland and pancreas are unremarkable. Low-attenuation 1.5 cm left adrenal nodule is unchanged since prior CT. This favors an adenoma. The appendix is normal. There is no evidence for a bowel obstruction. Colonic diameter stenosis. No definite evidence for acute diverticulitis. There is no lymphadenopathy. No fluid collections are present. Postoperative findings within the spine are incidentally noted. IMPRESSION: 1. 6 mm proximal left ureteral calculus results in mild left hydronephrosis. 2. Bilateral nephrolithiasis. ACT 112: Negative or not required by law. Electronically signed by: Ariel Patel M.D. 12/31/2023 1:07 PM Discharge Plan Visit Data Chief Complaint: Urinary Symptoms Stated Complaint: UTI SX - BLOOD IN URINE ED Provider: Iban Adkins Discharge Problem: Pelvic pain, Dysuria, Hydronephrosis, Hematuria, Leukocytosis Patient Disposition: Admitted As Inpatient Condition: Fair Forms Stand Alone Forms: [employer] Prescriptions Prescriptions: No Action bupropion HCl 150 mg tablet extended release 24 hr 150 mg PO DAILY Qty: 90 3RF citalopram 10 mg tablet 10 mg PO DAILY Qty: 90 3RF Gemtesa 75 mg tablet 75 mg PO DAILY Qty: 90 3RF simvastatin 40 mg tablet 40 mg PO HS Qty: 90 3RF clonazepam 1 mg tablet 1 mg PO Q12H PRN (Reason: anxiety) Qty: 180 0RF cephalexin 250 mg capsule 250 mg PO DAILY Qty: 90 0RF cholecalciferol (vitamin D3) 2,000 unit tablet 4,000 units PO DAILY ascorbic acid (vitamin C) 500 mg tablet 500 mg PO QAM lisinopril 20 mg tablet 20 mg PO DAILY Qty: 90 3RF Referrals Referrals: Jacob Jones MD [Primary Care Provider] - Discharge Problem: Hydronephrosis Qualifiers: Hydronephrosis type: with renal calculous obstruction Qualified Code(s): N13.2 - Hydronephrosis with renal and ureteral calculous obstruction Hematuria Qualifiers: Hematuria type: gross Qualified Code(s): R31.0 - Gross hematuria Leukocytosis Qualifiers: Leukocytosis type: unspecified Qualified Code(s): D72.829 - Elevated white blood cell count, unspecified
[2023-12-31 12:59] LABS: Basophils # (auto) 0.05 K/uL (0.00-0.20); Basophils % (auto) 0.5 %; Eosinophils # (auto) 0.39 K/uL (0.00-0.50); Eosinophils % (auto) 3.5 %; Hematocrit (blood only) 46.2 % (37.0-47.0); Hemoglobin 15.4 g/dl (12.0-16.0); Immature Granulocytes % (auto) 0.9 %; Lymphocytes # (auto) 1.99 K/uL (1.20-3.40); Mean Corpuscular Hemoglobin 31.4 pg (25.0-34.0); Mean Corpuscular Hgb Conc 33.3 g/dL (32.0-36.0); Mean Corpuscular Volume 94.1 fL (80.0-100.0); Mean Platelet Volume 9.3 fL (9.4-12.4); Monocytes # (auto) 0.77 K/uL (0.11-0.59); Neutrophils # (auto) 7.74 K/uL (1.40-6.50); Neutrophils % (auto) 70.1 %; Platelet Count 258 K/uL (130-400); RDW Coefficient of Variation 13.5 % (11.5-14.5); RDW Standard Deviation 46.8 fL (36.4-46.3); Red Blood Count 4.91 M/uL (4.20-5.40); White Blood Count 11.04 K/ul (4.8-10.8)
[2023-12-31] MEDS: SODIUM CHLORIDE 0.9% 500 ML IV STA (13:04)
[2023-12-31 13:07] LABS: Appearance Urine Cloudy (Clear); Bilirubin Urine Negative (Negative); Blood Urine 3+ (Negative); Color Urine Red; Glucose Urine UA Negative (Negative); Ketones Urine Negative (Negative); Leukocyte Esterase Urine Negative (Negative); Nitrite Urine Negative (Negative); Protein Urine 2+ (Negative); Specific Gravity Urine >= 1.030 (1.000-1.030); Urobilinogen Urine Negative (Negative); pH Urine 5.5 (4.5-7.5)
--- NOTE | 2023-12-31 13:09 | CT Scan Report ---
CT OF THE ABDOMEN AND PELVIS WITHOUT CONTRAST CLINICAL HISTORY: poss ureteral stone COMPARISON STUDY: Renal ultrasound August 01, 2023. CT of the abdomen and pelvis October 07 1. TECHNIQUE: Axial images of the abdomen and pelvis were obtained without IV contrast. Images were revi ewed in the axial, sagittal, and coronal planes. Automated exposure control was utilized for the garett dy. A dose lowering technique was utilized adhering to the principles of ALARA. FINDINGS: A 5 mm right middle lobe nodule is unchanged since CT of October 07, 2011. This is benign. No pneumatosis, free air or portal venous gas is present. A 6 mm proximal left ureteral calculus at or just distal to the ureteropelvic junction results in mild left hydronephrosis. There is mild left periureteral stranding. Several additional bilateral renal calculi measure up to 4 mm. There are no r ight ureteral calculi. There is no right hydronephrosis. Unenhanced images of the liver, spleen, righ t adrenal gland and pancreas are unremarkable. Low-attenuation 1.5 cm left adrenal nodule is unchange d since prior CT. This favors an adenoma. The appendix is normal. There is no evidence for a bowel ob struction. Colonic diameter stenosis. No definite evidence for acute diverticulitis. There is no lymp hadenopathy. No fluid collections are present. Postoperative findings within the spine are incidental ly noted. IMPRESSION: 1. 6 mm proximal left ureteral calculus results in mild left hydronephrosis. 2. Bilateral nephrolithiasis. ACT 112: Negative or not required by law. Electronically signed by: Ariel Patel M.D. 12/31/2023 1:07 PM
[2023-12-31 13:11] LABS: Calcium Oxalate Crystals Urine Present (None Prsent); Mucus Urine Present (None Prsent); RBC Urine >30 /hpf (0-4)
[2023-12-31 13:12] LABS: Bacteria Urine 1+ (Negative)
[2023-12-31 13:16] LABS: Albumin Globulin Ratio 1.8 (0.9-2); Albumin Level 4.4 gm/dl (3.4-5.0); BUN Creatinine Ratio 21.1 (10-20); Bilirubin,Total 0.6 mg/dl (0.2-1.0); Calcium 9.4 mg/dl (8.6-10.3); Creatinine Clr Calc Pharmacy 55.8 ml/min; Est GFR (Non-African American) 77.7 ml/min; Globulin 2.5 gm/dl (2.5-4.0); Potassium 3.7 mmol/L (3.5-5.1); Total Protein 6.9 gm/dl (6.0-8.3)
[2023-12-31] MEDS: TAMSULOSIN HCL 0.4 MG CAP PO ONE (14:01)
[2023-12-31] MEDS: ACETAMINOPHEN 1,000 MG/100 ML VIAL IV STA (14:01)
[2023-12-31] MEDS: SODIUM CHLORIDE 0.9% 500 ML IV ONE (14:02)
--- NOTE | 2023-12-31 14:12 | History & Physical Report ---
Date of Service December 31, 2023 Assessment & Plan (1) Left nephrolithiasis: Plan: Patient developed hematuria the evening of 12/30 with pain radiating to her back A/P CT on arrival revealed 6 mm proximal left ureteral calculus with mild left hydronephrosis No hx of prior kidney stones Mild leukocytosis at 11.04 with a neutrophil predominance; afebrile Lipase low at 4 Urology consulted Patient requested to follow with Dr. Dc, who she follows with outpatient Urine strainer Tamsulosin 0.4 mg p.o. daily Acetaminophen IV as needed for pain A.m. CBC, BMP (2) UTI (urinary tract infection): Plan: UA is red and cloudy on arrival; 2+ protein, 3+ blood, calcium oxalate crystals present Patient is currently on Keflex x 6 months outpatient for recurrent UTIs Rocephin started in ED Will continue to cover UTI symptoms with Rocephin Hold Keflex Plan [facility]: [facility] Regular diet, then n.p.o. at midnight (per urology) VTE PPx: SCDs (hold chemical DVT PPx in setting of gross hematuria) History of Present Illness Chief Complaint: Urinary symptoms Primary Care Provider: Jacob Jones MD Alysia is a pleasant 83-year-old female with PMH of urge and stress incon tinence, HLD, tricuspid regurg, spinal stenosis, hemorrhoids, chronic back pain, HTN, and depression with anxiety. She presented for weakness and chills while using the bathroom x 1 week, as well as gross hematuria the evening of 12/30. Patient reports she was having urethral pain and on Monday night 12/29, as well as burning with urination. She is on daily outpatient Keflex for recurrent UTIs, and has been for the past 6 months. She tried doubling up her Keflex at the beginning of last week as she thought she was having a UTI come on. No prior history of kidney stones. She was previously on Keflex outpatient prescribed per her PCP for recurrent UTIs. She endorses pressure in her suprapubic region, that has been constant over the past week. The burning sensation that developed Monday night has since resolved, but she notes that hematuria has been ongoing since last night. No recent changes in diet; patient has been tolerating solids and fluids without nausea and vomiting. She tried taking Tylenol 500 mg x 2 tablets twice daily for intermittent back pain, and chills. She notes that she has chronic back pain and was supposed to have an ablation done on 12/28 that was canceled. Patient is hypertensive at 161/75 at time of admission; vitals otherwise stable. ED course: Rocephin 2000 mg IV NSS 500 mL IV x 2 Acetaminophen 1000 mg IV Tamsulosin 0.4 mg p.o. ROS: Patient endorses chills, sweating episodes, back pain (ongoing), genital discomfort, burning with urination, hematuria, and weakness in legs. Patient denies fever, dizziness, lightheadedness, ASTUDILLO, falls, fainted, chest pain, SOB, cough, abdominal pain, N/V/D, flank pain, saddle anesthesia, or numbness/tingling in the legs. Allergies Allergy/AdvReac Type Severity Reaction Status Date / Time Sulfa (Sulfonamide Allergy Unknown BLISTERS Verified 10/10/23 13:09 Antibiotics) IN MOUTH Home Medications Medication Instructions Recorded Confirmed Type ascorbic acid (vitamin C) 500 mg 500 mg PO QAM 06/19/19 12/31/23 History tablet cholecalciferol (vitamin D3) 50 4,000 units PO DAILY 06/19/19 12/31/23 History mcg (2,000 unit) tablet bupropion HCl 150 mg 24 hr tablet, 150 mg PO DAILY #90 tabs 04/17/23 12/31/23 Rx extended release lisinopril 20 mg tablet 20 mg PO DAILY #90 tabs 05/09/23 12/31/23 Rx citalopram 10 mg tablet 10 mg PO DAILY #90 tabs 05/29/23 12/31/23 Rx vibegron 75 mg tablet (Gemtesa) 75 mg PO DAILY #90 tabs 08/14/23 12/31/23 Rx simvastatin 40 mg tablet 40 mg PO HS #90 tabs 09/19/23 12/31/23 Rx clonazepam 1 mg tablet 1 mg PO Q12H PRN anxiety #180 tabs 11/03/23 12/31/23 Rx cephalexin 250 mg capsule 250 mg PO DAILY #90 caps 11/22/23 12/31/23 Rx Past Med/Surg History Medical History Lumbar facet joint syndrome Lumbar postlaminectomy syndrome Environmental and seasonal allergies Hypertension Hyperlipidemia Hx of deep venous thrombosis hx 30 yrs ago right calf Spinal stenosis Internal hemorrhoids Diverticulosis Depression with anxiety Deep vein thrombosis of lower extremity Chronic interstitial cystitis Chronic back pain Surgical History History of esophagogastroduodenoscopy (EGD) Hx of colonoscopy Hx of arthroscopy of shoulder History of cataract surgery approx 2015 History of arthroscopic knee surgery History of total hysterectomy History of back surgery x 3 History of cholecystectomy Family History Brother Colorectal cancer Sister Colorectal cancer Father Myocardial infarction Mother Cardiac disorder Denies family history of Ovarian cancer Prostate cancer Diabetes Breast cancer Social History Smoking Status: Never smoker Second Hand Exposure: No; Do You Dip or Chew Tobacco: No; Hx Alcohol Use: No Hx Substance Use: No Preferred Language: Belarusian Communication Ability: Effective Visual Impairment: No Limitations Hearing Ability: Normal Special Collections Librarian Required: No Beliefs That Will Affect Care: None marital status: / Current Living Situation: Alone current occupational status: retired 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 Other Information That Helps Us Care for You: No Feels Safe at Home: Yes Safety Concerns: Feels Safe At This Time Childhood Exposure to Second-Hand Smoke: No Diet: regular caffeine: Yes Dental Care, Regularly: Yes Physical Activity Frequency: Does not Exercise Seatbelt Use: always Sunscreen Use: Yes Review of Systems Review of Systems: See HPI above Physical Exam Physical Exam: General: no acute distress; pleasant affect; non-toxic appearing; well- nourished; cooperative; SpO2 97% on RA HEENT: normocephalic, atraumatic; no scleral icterus; PERRLA; moist mucus membrane; vision and hearing grossly intact Neck: supple; no lymphadenopathy; trachea midline Skin: warm, dry without signs of tenting; no cyanosis; no rashes, bruising, lesions, or erythema noted CV: chest wall NTP; RRR; S1/S2 normal; no murmurs/rubs/gallops; pulses intact a nd symmetric at radial, DP, and PT Lungs: no acute respiratory distress; symmetrical chest wall expansion; clear breath sounds across all lung pham w/o adventitious sounds; no wheezing ABD: Soft, NTP; suprapubic tenderness and TTP; no signs of rashes or bruising; BS present; no rebound/guarding; no ascites; no distention; Back: Upper spine NTP; negative CVA tenderness bilaterally MSK: no tics or fasciculations; no edema noted in the LEs b/l, nonerythematous Neuro: A&Ox3; normal mood and affect; fluent speech; no focal deficits; sensation grossly intact in the LEs b/l Results & Data Results & Data Vital Signs (Past 12 Hours) Vital Signs Temp Pulse Pulse Resp BP BP Pulse Ox 12/31/23 13:00 70 17 165/94 H 97 12/31/23 11:59 36.3 C L 99 H 18 158/100 H 96 O2 Del Method 12/31/23 13:00 Room Air 12/31/23 11:59 Room Air Laboratory Results Abnormal lab results 12/31/23 Range/Units 12:35 WBC 11.04 H (4.8-10.8) K/ul RDW Std Deviation 46.8 H (36.4-46.3) fL MPV 9.3 L (9.4-12.4) fL Neut # (Auto) 7.74 H (1.40-6.50) K/uL [place] # (Auto) 0.77 H (0.11-0.59) K/uL BUN/Creatinine Ratio 21.1 H (10-20) Glucose 114 H (70-99(Fasting)) mg/dl Lipase 4 L (11-82) U/L Urine Appearance Cloudy A (Clear) Urine Protein 2+ H (Negative) Urine Blood 3+ H (Negative) Urine RBC >30 H (0-4) /hpf Urine WBC 5-10 H (0-5) /hpf Ur Epithelial Cells 5-10 H (0-5) /lpf Calcium Oxalate Crystal Present A (None Prsent) Urine Bacteria 1+ H (Negative) Urine Mucus Present A (None Prsent) Diagnostic Findings Abdomen/Pelvis CT 12/31/23 12:22 CT OF THE ABDOMEN AND PELVIS WITHOUT CONTRAST CLINICAL HISTORY: poss ureteral stone COMPARISON STUDY: Renal ultrasound August 01, 2023. CT of the abdomen and pelvis October 07, 2011. TECHNIQUE: Axial images of the abdomen and pelvis were obtained without IV contrast. Images were reviewed in the axial, sagittal, and coronal planes. Automated exposure control was utilized for the study. A dose lowering technique was utilized adhering to the principles of ALARA. FINDINGS: A 5 mm right middle lobe nodule is unchanged since CT of October 07, 2011. This is benign. No pneumatosis, free air or portal venous gas is present. A 6 mm proximal left ureteral calculus at or just distal to the ureteropelvic junction results in mild left hydronephrosis. There is mild left periureteral stranding. Several additional bilateral renal calculi measure up to 4 mm. There are no right ureteral calculi. There is no right hydronephrosis. Unenhanced images of the liver, spleen, right adrenal gland and pancreas are unremarkable. Low-attenuation 1.5 cm left adrenal nodule is unchanged since prior CT. This favors an adenoma. The appendix is normal. There is no evidence for a bowel obstruction. Colonic diameter stenosis. No definite evidence for acute diverticulitis. There is no lymphadenopathy. No fluid collections are present. Postoperative findings within the spine are incidentally noted. IMPRESSION: 1. 6 mm proximal left ureteral calculus results in mild left hydronephrosis. 2. Bilateral nephrolithiasis. ACT 112: Negative or not required by law. Electronically signed by: Ariel Patel M.D. 12/31/2023 1:07 PM Code Status & VTE Plan Code Status DNR/DNI VTE Prophylaxis Plan VTE Prophylaxis will be ordered: Yes Supervising Physician Co-Signing Physician Notes Patient seen and examined, chart reviewed, case discussed with Major Mcmillan, PAC and I agree with the assessment and plan as above except as otherwise noted Labs and images reviewed Alysia Benito" is a 83yo F who presents with UTI and 6mm left ureteral calculus with mild hydro. Covered with rocephin. Urology consulted and will see in AM, NPO at midnight. Nontoxic. Hemodynamically stable on assessment. Agree with assessment and management as above. Keflex held while on Rocephin PG Care Time/CCT Total # of Minutes Spent Total Time Spent with Patient: Total time spent is greater than 50% in coordination of care (as documented) at patient's floor/unit and/or counseling patient: [place] [address] INT INP/OBS CARE 2/55MIN Patient Type New Medical Decision Making Moderate Complexity Diagnoses Left nephrolithiasis N20.0 UTI (urinary tract infection) N39.0
[2023-12-31] MEDS: cefTRIAXone SODIUM 2,000 MG/50 ML BAG IV STA (14:55)
[2023-12-31] MEDS ORDERED: ONDANSETRON INJ 2 MG/ML 2 ML VIAL IV PRN (16:42)
[2023-12-31] MEDS ORDERED: clonazePAM 1 MG TAB PO PRN (16:42)
[2023-12-31] MEDS ORDERED: MELATONIN 3 MG TAB PO PRN (16:42)
[2023-12-31] MEDS: PLASMA-LYTE A 1,000 ML IV SCH (18:15)
[2023-12-31] MEDS: ACETAMINOPHEN 325 MG TAB PO PRN (20:47)
[2024-01-01 07:53] LABS: Basophils # (auto) 0.02 K/uL (0.00-0.20); Basophils % (auto) 0.3 %; Eosinophils # (auto) 0.31 K/uL (0.00-0.50); Eosinophils % (auto) 3.9 %; Hematocrit (blood only) 39.7 % (37.0-47.0); Hemoglobin 13.2 g/dl (12.0-16.0); Immature Granulocytes # (auto) 0.05 K/uL (0.01-0.20); Immature Granulocytes % (auto) 0.6 %; Lymphocytes # (auto) 1.73 K/uL (1.20-3.40); Lymphocytes % (auto) 21.8 %; Mean Corpuscular Hemoglobin 31.4 pg (25.0-34.0); Mean Corpuscular Hgb Conc 33.2 g/dL (32.0-36.0); Mean Corpuscular Volume 94.5 fL (80.0-100.0); Mean Platelet Volume 9.5 fL (9.4-12.4); Monocytes # (auto) 0.55 K/uL (0.11-0.59); Monocytes % (auto) 6.9 %; Neutrophils # (auto) 5.29 K/uL (1.40-6.50); Neutrophils % (auto) 66.5 %; Platelet Count 224 K/uL (130-400); RDW Coefficient of Variation 13.8 % (11.5-14.5); RDW Standard Deviation 48.1 fL (36.4-46.3); White Blood Count 7.95 K/ul (4.8-10.8)
[2024-01-01 08:08] LABS: Calcium 8.4 mg/dl (8.6-10.3); Est GFR (African American) 93.8 ml/min; Potassium 4.1 mmol/L (3.5-5.1)
[2024-01-01] MEDS ORDERED: cephALEXin 250 MG CAP PO SCH (09:00)
[2024-01-01] MEDS: TAMSULOSIN HCL 0.4 MG CAP PO SCH (09:24)
[2024-01-01] MEDS: VIBEGRON 75 MG TAB PO SCH (09:25)
[2024-01-01] MEDS: buPROPion XL 150 MG TABCR PO SCH (09:25)
[2024-01-01] MEDS: lisinopril 20 MG TAB PO SCH (09:25)
[2024-01-01] MEDS: CITALOPRAM 20 MG TAB PO SCH (09:25)
--- NOTE | 2024-01-01 11:06 | Anesthesiology Consultation ---
Date of Service January 01, 2024 Assessment & Plan (1) Encounter for pre-operative examination: Chart Review Chart Review: Acceptable Risk for Surgery History Surgery Operation Date: 01/01/24 09:00 Proposed Procedures p Cystoscopy, Left Retrograde Pyelogram, Left Ureteral Stent Placement, Possible Ureteroscopy, Laser Litho Stone Treatment - Talon Dc, DO Height/Weight Height: 5 ft 4 in Weight: 70.5 kg Allergies Allergy/AdvReac Type Severity Reaction Status Date / Time Sulfa (Sulfonamide Allergy Unknown BLISTERS Verified 10/10/23 13:09 Antibiotics) IN MOUTH Medications Home Medications Medication Instructions Recorded Confirmed Last Taken ascorbic acid (vitamin C) 500 mg 500 mg PO QAM 06/19/19 12/31/23 11/08/22 tablet cholecalciferol (vitamin D3) 50 4,000 units PO DAILY 06/19/19 12/31/23 11/09/22 mcg (2,000 unit) tablet bupropion HCl 150 mg 24 hr tablet, 150 mg PO DAILY #90 tabs 04/17/23 12/31/23 Unknown extended release lisinopril 20 mg tablet 20 mg PO DAILY #90 tabs 05/09/23 12/31/23 Unknown citalopram 10 mg tablet 10 mg PO DAILY #90 tabs 05/29/23 12/31/23 Unknown vibegron 75 mg tablet (Gemtesa) 75 mg PO DAILY #90 tabs 08/14/23 12/31/23 Unknown simvastatin 40 mg tablet 40 mg PO HS #90 tabs 09/19/23 12/31/23 Unknown clonazepam 1 mg tablet 1 mg PO Q12H PRN anxiety #180 tabs 11/03/23 12/31/23 Unknown cephalexin 250 mg capsule 250 mg PO DAILY #90 caps 11/22/23 12/31/23 Unknown Active Medications Generic Name Dose Route Start Last Admin Trade Name Freq PRN Reason Stop Dose Admin Acetaminophen 650 mg 12/31/23 16:42 12/31/23 20:47 Acetaminophen 325 Mg Tab PO 01/30/24 16:41 650 mg Q4H PRN Administration pain/fever Bupropion HCl 150 mg 01/01/24 09:00 01/01/24 09:25 Bupropion Xl 150 Mg Tabcr PO 01/31/24 08:59 150 mg DAILY CLEMENT Administration Citalopram Hydrobromide 10 mg 01/01/24 09:00 01/01/24 09:25 Citalopram 20 Mg Tab PO 01/31/24 08:59 10 mg DAILY CLEMENT Administration Parenteral Electrolytes 1,000 mls @ 80 mls/hr 12/31/23 17:15 01/01/24 05:52 Plasma-Lyte A Ph 7.4 IV 01/01/24 18:14 80 mls/hr .[id number] CLEMENT Administration Lisinopril 20 mg 01/01/24 09:00 01/01/24 09:25 Lisinopril 20 Mg Tab PO 01/31/24 08:59 20 mg DAILY CLEMENT Administration Tamsulosin HCl 0.4 mg 01/01/24 09:00 01/01/24 09:24 Tamsulosin Hcl 0.4 Mg Cap PO 01/31/24 08:59 0.4 mg QAM CLEMENT Administration Vibegron 75 mg 01/01/24 09:00 01/01/24 09:25 Vibegron 75 Mg Tab PO 01/31/24 08:59 75 mg DAILY CLEMENT Administration Past Medical History Medical History Lumbar facet joint syndrome Lumbar postlaminectomy syndrome Environmental and seasonal allergies Hypertension Hyperlipidemia Hx of deep venous thrombosis hx 30 yrs ago right calf Spinal stenosis Internal hemorrhoids Diverticulosis Depression with anxiety Deep vein thrombosis of lower extremity Chronic interstitial cystitis Chronic back pain Past Family History Family History Brother Colorectal cancer Sister Colorectal cancer Father Myocardial infarction Mother Cardiac disorder Denies family history of Ovarian cancer Prostate cancer Diabetes Breast cancer Past Surgical History Surgical History History of esophagogastroduodenoscopy (EGD) Hx of colonoscopy Hx of arthroscopy of shoulder History of cataract surgery approx 2014 History of arthroscopic knee surgery History of total hysterectomy History of back surgery x 3 History of cholecystectomy Social History Smoking Status: Never smoker Do You Dip or Chew Tobacco: No Hx Alcohol Use: No Hx Substance Use: No substance use type: does not use Physical Exam Vital Signs Last Vital Signs Temp 36.6 C 01/01/24 07:50 Pulse 72 01/01/24 07:50 Resp 16 01/01/24 07:50 BP 156/68 H 01/01/24 07:50 Pulse Ox 94 01/01/24 07:50 O2 Del Method Room Air 01/01/24 07:50 Testing Laboratory Results 01/01/24 07:29 01/01/24 07:29 Urine Color Red 12/31/23 12:35 Urine Appearance Cloudy (Clear) A 12/31/23 12:35 Urine pH 5.5 (4.5-7.5) 12/31/23 12:35 Ur Specific [place] >= 1.030 (1.000-1.030) 12/31/23 12:35 Urine Protein 2+ (Negative) H 12/31/23 12:35 Urine Glucose (UA) Negative (Negative) 12/31/23 12:35 Urine Ketones Negative (Negative) 12/31/23 12:35 Urine Nitrite Negative (Negative) 12/31/23 12:35 Ur Leukocyte Esterase Negative (Negative) 12/31/23 12:35 Urine RBC >30 /hpf (0-4) H 12/31/23 12:35 Urine WBC 5-10 /hpf (0-5) H 12/31/23 12:35 Ur Epithelial Cells 5-10 /lpf (0-5) H 12/31/23 12:35
--- NOTE | 2024-01-01 11:48 | Urology Consultation ---
Date of Consultation January 01, 2024 Assessment & Plan (1) Left ureteral calculus: (2) Hematuria: Plan 83yo F who presented with hematuria and found to have a 6mm proximal left ureteral stone. She is afebrile and hemodynamically stable Labs show no leukocytosis and normal renal function. Urine culture pending, on ceftriaxone. Voiding spontaneously, continue to monitor. We discussed acute stone management with cystoscopy, stent placement, possible stone treatment. Ureteral stents were discussed as well as postoperative issues and pain management. She is aware a second procedure may be needed for stone treatment. Risks and benefits were discussed. All questions were answered. Will plan to proceed to OR today for cystoscopy, left retrograde pyelogram, left ureteroscopy, possible ureteral dilation, possible laser lithotripsy/stone treatment, left ureteral stent placement depending on findings with Dr. Dc. Risks and benefits to be reviewed with patient by Dr. Dc. Covered with scheduled IV ceftriaxone. Continue supportive care. Urology will follow. Attending note: Patient independently assessed, examined, interviewed, and evaluated. Agree with note as above. Patient's vitals and labs were all reviewed. Pertinent values in the HPI and plan section. Imaging was reviewed interpreted by myself. Agree with read. Vitals were reviewed. Discussed findings extensively with patient and family. Reviewed with nurse practitioner as well as consulting physicians/team. Patient's complicated medical and surgical history was reviewed and summarized above. Patient's surgical, medical, social, and family history were all reviewed with pertinent values as above. Discussed patient's current diagnosis as well as concerns and issues. Reviewed different options moving forward. Discussed potential risks and benefits as well as possible options and concerns. Reviewed potential surgical options and interventions. Discussed potential issues and concerns related to intervention. Risk and benefits were discussed extensively with patient and any available family. Discussed potential risks related to anesthesia. Discussed risks of bleeding infection and injury. Patient CT imaging was assessed. Reviewed and interpreted by myself. Does appear to have stone within the proximal ureter on the left. White count is 7.95. Creatinine 0.65. HB 13.2 Other labs and values were reviewed. Pertinent findings in the HPI or plan section. Patient's complicated medical and surgical history was reviewed and summarized as above. Patient's vitals are currently stable. Risks and benefits discussed at length for procedure. These include bleeding, infection, injury to surrounding tissues or organs, and risks associated with anesthesia. Patient states understanding and agrees to proceed. Will sign consent and sc hedule. Plan for cystoscopy with left ureteroscopy, stone treatment, and stent placement. History of Present Illness Attending Physician: Zac Stauffer MD History of Present Illness 83-year-old female with PMH of urge and stress incontinence, HLD, tricuspid regurg, spinal stenosis, hemorrhoids, chronic back pain, HTN, and depression with anxiety who presented to the ED with gross hematuria and urethral pain. CT abdomen pelvis on arrival demonstrated a 6 mm proximal left ureteral calculus results in mild left hydronephrosis. She was afebrile and hemodynamically stable. Labs showing no leukocytosis and normal renal function. Urinalysis with 3+ blood,>30 RBC, negative nitrite, 1+ bacteria. Urine culture collected and pending. Started on IV ceftriaxone. Admitted to medicine service for continued care and management. ED course: Rocephin, IV fluids, Tylenol, tamsulosin. Patient examined at bedside this AM. Awake, resting in bed on arrival. No acute distress. Denies any noticeable stone passage. Denies fever, chills, nausea, vomiting. Denies any significant pain at present. Voiding spontaneously, notes some hematuria and dysuria. Has been NPO. Allergies Allergy/AdvReac Type Severity Reaction Status Date / Time Sulfa (Sulfonamide Allergy Unknown BLISTERS Verified 10/10/23 13:09 Antibiotics) IN MOUTH Home Medications Medication Instructions Recorded Confirmed Type ascorbic acid (vitamin C) 500 mg 500 mg PO QAM 06/19/19 12/31/23 History tablet cholecalciferol (vitamin D3) 50 4,000 units PO DAILY 06/19/19 12/31/23 History mcg (2,000 unit) tablet bupropion HCl 150 mg 24 hr tablet, 150 mg PO DAILY #90 tabs 04/17/23 12/31/23 Rx extended release lisinopril 20 mg tablet 20 mg PO DAILY #90 tabs 05/09/23 12/31/23 Rx citalopram 10 mg tablet 10 mg PO DAILY #90 tabs 05/29/23 12/31/23 Rx vibegron 75 mg tablet (Gemtesa) 75 mg PO DAILY #90 tabs 08/14/23 12/31/23 Rx simvastatin 40 mg tablet 40 mg PO HS #90 tabs 09/19/23 12/31/23 Rx clonazepam 1 mg tablet 1 mg PO Q12H PRN anxiety #180 tabs 11/03/23 12/31/23 Rx cephalexin 250 mg capsule 250 mg PO DAILY #90 caps 11/22/23 12/31/23 Rx Patient History Medical History Lumbar facet joint syndrome Lumbar postlaminectomy syndrome Environmental and seasonal allergies Hypertension Hyperlipidemia Hx of deep venous thrombosis hx 30 yrs ago right calf Spinal stenosis Internal hemorrhoids Diverticulosis Depression with anxiety Deep vein thrombosis of lower extremity Chronic interstitial cystitis Chronic back pain Surgical History History of esophagogastroduodenoscopy (EGD) Hx of colonoscopy Hx of arthroscopy of shoulder History of cataract surgery approx 2014 History of arthroscopic knee surgery History of total hysterectomy History of back surgery x 3 History of cholecystectomy Family History Brother Colorectal cancer Sister Colorectal cancer Father Myocardial infarction Mother Cardiac disorder Denies family history of Ovarian cancer Prostate cancer Diabetes Breast cancer Social History Smoking Status: Never smoker Second Hand Exposure: No; Do You Dip or Chew Tobacco: No; Hx Alcohol Use: No Hx Substance Use: No Preferred Language: Upper Sorbian Communication Ability: Effective Visual Impairment: No Limitations Hearing Ability: Normal Shopping Inspector Required: No Beliefs That Will Affect Care: None marital status: / Current Living Situation: Alone current occupational status: retired 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 Other Information That Helps Us Care for You: No Feels Safe at Home: Yes Safety Concerns: Feels Safe At This Time Childhood Exposure to Second-Hand Smoke: No Diet: regular caffeine: Yes Dental Care, Regularly: Yes Physical Activity Frequency: Does not Exercise Seatbelt Use: always Sunscreen Use: Yes Assistive Devices: Cane Review of Systems Review of Systems: All systems reviewed & are unremarkable except as noted in HPI & below Physical Exam Constitutional: well developed and well nourished; no acute distress Neck: normal visual inspection Respiratory: normal respiratory effort; no respiratory distress and no labored breathing Gastrointestinal (Abdomen): Inspection/Auscultation: abdomen normal to inspection Musculoskeletal: Head/Neck/Chest: normocephalic Neurologic: moves all extremities and awake Psychiatric: A+Ox3, euthymic affect Results & Data Vital Signs (Past 12 Hours) Vital Signs Temp Pulse Resp BP Pulse Ox O2 Del Method 01/01/24 07:50 36.6 C 72 16 156/68 H 94 Room Air PG Care Time/CCT Total # of Minutes Spent Total Time Spent with Patient: Total time spent is greater than 50% in coordination of care (as documented) at patient's floor/unit and/or counseling patient: Coding Level of Care Code 36404 INT INP/OBS CARE 2/55MIN Diagnoses Left ureteral calculus N20.1 Hematuria R31.0 Hematuria type: gross (2) Hematuria Hematuria type: gross Qualified Code(s): R31.0 - Gross hematuria
[2024-01-01] MEDS ORDERED: PROMETHAZINE HCL 6.25 MG in SODIUM CHLORIDE 0.9% 50 ML IV PRN (12:18)
[2024-01-01] MEDS ORDERED: ATROPINE SULFATE 0.1 MG/ML 10ML SYR IV PRN (12:18)
[2024-01-01] MEDS ORDERED: fentaNYL citrate PF 100 MCG/2 ML VIAL ONE (12:28)
[2024-01-01] MEDS ORDERED: PROPOFOL IV EMULSION 10 MG/ML 20 ML VIAL IV ONE (12:28)
[2024-01-01] MEDS ORDERED: DEXAMETHASONE SOD INJ 4 MG/ML VIAL ONE (12:28)
[2024-01-01] MEDS ORDERED: ONDANSETRON INJ 2 MG/ML 2 ML VIAL ONE (12:28)
[2024-01-01] MEDS ORDERED: ceFAZolin 330 MG/ML 1 GM VIAL ONE (12:42)
[2024-01-01] MEDS: ceFAZolin 2000MG 2,000 MG/15 ML SYR IV ONE (12:43)
[2024-01-01] MEDS: DIATRIZOATE MEGLUMINE 30% 100ML VIAL INSTIL PRN (13:08)
--- NOTE | 2024-01-01 13:14 | Operative Report ---
PG Post Operative Report Pre & Post Diagnosis Operation Date: 01/01/24 09:00 Pre-Op Diagnosis: Left ureteral calculus; Hematuria Post-Op Diagnosis: Left ureteral calculus; Hematuria I identified the patient and participated in the time-out.: Yes Procedure Operation Date: 01/01/24 09:00 Actual Procedures p Cystoscopy with Left Retrograde Pyelogram, Left Ureteral Stent Placement, Ureteroscopy, Laser Treatment of Stone, and Basket Extraction - Talon Dc, Surgeon Talon Dc, II, DO Dubbing Machine Operator None Estimated Blood Loss 1 Findings Consistent with Post-Op Diagnosis Ureteral Stone destroyed to dust and small fragments and larger fragments removed. Multiple small stones in renal pelvis. Specimens Stone Fragments Drains 4.8 Fr Multilength Anesthesia Type General Complications none Disposition Disposition: Recovery Room Indications Patient with bothersome stones. Risks and benefits discussed at length. Description of Procedure Patient was consented and brought back to the operating room. Patient was placed under anesthesia in the supine position and moved to the dorsal lithotomy position. Patient was prepped and draped in the regular sterile fashion. A time out was completed identifying the correct patient and procedure. A 30degree Cystoscope was placed into the bladder and the entire bladder was examined. The UO's were identified. The UO was cannulized with a catheter and a retrograde pyelogram was completed. A wire was then placed. A second safety wire was placed. The flexible ureteroscope was taken into the ureter. The entire ureter and renal pelvis were examined. The stones were identified. A laser fiber was selected and the stones were pulverized to dust and small fragments. Larger fragments were grasped and removed and sent for analysis. The entire area was once again examined. No residual large fragments or areas of concern were noted. The scope was slowly removed with the wire left in place. Contrast was placed through the scope for a pyelogram to assist in stent placement. The entire ureter was examined as the scope was slowly removed. No obstructions or other areas of concern were noted. With the wire in place, a 4.8 Fr Double J stent was placed. It was confirmed with fluoroscopy. With the stent in place, the bladder was emptied. The scope was removed. The patient was cleaned, aroused from anesthesia, and transferred to the pacu in stable condition having tolerated the procedure well with no complications. I was present and participated in all aspects of the procedure. The patient will be monitored in the PACU until transferred. Plan stent removal in 1-2 weeks in office. I attest to the content of the Intraoperative Record and any orders documented therein. Any exceptions are noted below.
[2024-01-01] MEDS: fentaNYL citrate PF 100 MCG/2 ML VIAL IV PRN (13:20)
--- NOTE | 2024-01-01 13:32 | Fluoroscopy Report ---
FL retrograde includes kub CLINICAL HISTORY: LEFT STENT PLACEMENT COMPARISON STUDY: None. FLUOROSCOPY TIME: 52 seconds FLUOROSCOPY IMAGES: The Ka,r: 12.2 mGy FINDINGS: Retrograde opacification of the left renal collecting system followed by placement of a lef t ureteral stent. The ureteral stent appears in good position. IMPRESSION: Fluoroscopic assistance as above. ACT 112: Negative or not required by law. Electronically signed by: Major Torre M.D. 01/01/2024 1:31 PM
--- NOTE | 2024-01-01 14:05 | Anesthesiology Progress Note ---
Date of Service January 01, 2024 Anesthesia Post Procedure Vital Signs Vital Signs: Temp Pulse Pulse Resp BP BP Pulse Ox 01/01/24 14:00 97 H 18 133/67 93 01/01/24 13:50 100 H 18 142/49 H 91 01/01/24 13:40 100 H 18 142/72 H 91 01/01/24 13:30 96 H 18 140/60 93 01/01/24 13:20 96 H 18 140/60 93 01/01/24 13:14 36.0 C L 104 H 20 142/63 H 94 01/01/24 12:07 36.4 C L 87 20 171/78 H 93 01/01/24 07:50 36.6 C 72 16 156/68 H 94 12/31/23 20:45 12/31/23 20:21 36.7 C 80 15 120/69 94 12/31/23 16:23 36.5 C 74 14 128/81 97 12/31/23 14:41 70 17 161/75 H 95 O2 Del Method 01/01/24 14:00 Room Air 01/01/24 13:50 Room Air 01/01/24 13:40 Room Air 01/01/24 13:30 Room Air 01/01/24 13:20 Room Air 01/01/24 13:14 Room Air 01/01/24 12:07 Room Air 01/01/24 07:50 Room Air 12/31/23 20:45 Room Air 12/31/23 20:21 Room Air 12/31/23 16:23 Room Air 12/31/23 14:41 Room Air Pain Intensity Left Abdomen: Pain Intensity: 4 Transfer of Care Handoff Completed per policy Notes Mental Status: alert / awake / arousable Patient Amnestic to Procedure: Yes Nausea / Vomiting: adequately controlled Pain: adequately controlled Airway Patency, RR, SpO2: stable & adequate BP & HR: stable & adequate Hydration State: stable & adequate Anesthetic Complications: no major complications apparent
[2024-01-01] MEDS: cefTRIAXone SODIUM 2,000 MG in DEXTROSE 5 % MINI-B 50 ML IV SCH (15:47)
[2024-01-01] MEDS: MoRPHine SULFATE 2 MG/ML CARP IV PRN (15:47)
--- NOTE | 2024-01-01 16:46 | Hospitalist Progress Note ---
Date of Service January 01, 2024 Assessment & Plan (1) Left nephrolithiasis: Plan: Urology consultation appreciated. She underwent cystoscopy today, January 01, with left stent placement and laser lithotripsy completed. Pain control measures. Continue IV fluids. Creatinine remains stable. (2) UTI (urinary tract infection): Plan: Only pinpoint growth isolated so far. Continue Rocephin, day 2. Currently on Keflex x 6 months outpatient for recurrent UTIs Plan Hopeful discharge to home tomorrow, January 02 . She will resume Keflex at the time of discharge Admission and Anticipated Discharge Date Admission Date: December 31, 2023 Subjective The patient was seen prior to her cystoscopy today at which point she was alert and oriented. She underwent cystoscopy with left ureteral stent placed with cement and laser lithotripsy completed. She remains on intravenous Rocephin. Creatinine stable. Hopefully she can go home tomorrow, January 02. Urine culture is revealing pinpoint growth. She remains on intravenous Rocephin, day 2 Review of Systems 2 Review of Systems: Constitutional-no fever or chills ENT-no blurred vision, no double vision, no epistaxis, no sore throat Respiratory-no cough, no wheezing, no shortness of breath Cardiac-no palpitations, no chest pain, no syncope GI-no nausea, vomiting, diarrhea, melena, hematochezia -no urinary retention, no urinary incontinence, no dysuria, no hematuria Musculoskeletal-no joint pain, no muscle tenderness Skin-no bruising, no rashes, no pruritus Neuro-no isolated weakness, no paresthesia, no weakness Psych-no depression, no anxiety Physical Exam 2 Physical Exam: General-alert and oriented x3, no fever, no chills HEENT-head atraumatic and normocephalic, pupils equal and reactive to light, extraocular muscles intact Neck-no lymphadenopathy or thyromegaly, trachea midline Chest-clear to auscultation. No rales, wheezing or rhonchi Cardiac-regular rate and rhythm, normal S1 and S2 Abdomen-normal bowel sounds, nontender, no hepatosplenomegaly Extremities-no cyanosis, clubbing, or edema Neuro-cranial nerves II through XII intact, motor and sensory function within normal limits, strength symmetrical, no focal deficits Psych-normal affect, normal mood Results & Data Results & Data Vital Signs (Past 12 Hours) Vital Signs Temp Pulse Pulse Resp BP Pulse Ox O2 Del Method 01/01/24 15:30 36.3 C L 69 18 115/67 92 Room Air 01/01/24 14:30 36.7 C 85 18 127/71 94 Room Air 01/01/24 14:00 36.8 C 97 H 18 133/67 93 Room Air 01/01/24 13:50 100 H 18 142/49 H 91 Room Air 01/01/24 13:40 100 H 18 142/72 H 91 Room Air 01/01/24 13:30 96 H 18 140/60 93 Room Air 01/01/24 13:20 96 H 18 140/60 93 Room Air 01/01/24 13:14 36.0 C L 104 H 20 142/63 H 94 Room Air 01/01/24 12:07 36.4 C L 87 20 171/78 H 93 Room Air 01/01/24 07:50 36.6 C 72 16 156/68 H 94 Room Air Laboratory Results 01/01/24 07:29 01/01/24 07:29 PG Care Time/CCT Total # of Minutes Spent Total Time Spent with Patient: Total time spent is greater than 50% in coordination of care (as documented) at patient's floor/unit and/or counseling patient: Coding Level of Care Code 52939 SUB INP/OBS CARE 3/50MIN Diagnoses Left nephrolithiasis N20.0 UTI (urinary tract infection) N39.0
[2024-01-01] MEDS: SIMVASTATIN 40 MG TAB PO SCH (19:55)
[2024-01-02 07:57] LABS: Basophils # (auto) 0.02 K/uL (0.00-0.20); Basophils % (auto) 0.2 %; Eosinophils # (auto) 0.03 K/uL (0.00-0.50); Eosinophils % (auto) 0.3 %; Hematocrit (blood only) 37.3 % (37.0-47.0); Hemoglobin 12.7 g/dl (12.0-16.0); Immature Granulocytes # (auto) 0.06 K/uL (0.01-0.20); Immature Granulocytes % (auto) 0.6 %; Lymphocytes # (auto) 1.35 K/uL (1.20-3.40); Mean Corpuscular Hemoglobin 31.8 pg (25.0-34.0); Mean Corpuscular Volume 93.3 fL (80.0-100.0); Mean Platelet Volume 9.8 fL (9.4-12.4); Monocytes # (auto) 0.68 K/uL (0.11-0.59); Monocytes % (auto) 6.6 %; Neutrophils # (auto) 8.22 K/uL (1.40-6.50); Neutrophils % (auto) 79.3 %; Platelet Count 229 K/uL (130-400); RDW Coefficient of Variation 13.5 % (11.5-14.5); RDW Standard Deviation 46.3 fL (36.4-46.3); White Blood Count 10.36 K/ul (4.8-10.8)
[2024-01-02 08:19] LABS: BUN Creatinine Ratio 16.9 (10-20); Calcium 8.8 mg/dl (8.6-10.3); Est GFR (African American) 93.8 ml/min
[2024-01-02] MEDS ORDERED: oxyCODONE HCL IR 5 MG TAB (IMMEDIATE RELEASE) PO PRN (11:51)
--- NOTE | 2024-01-02 11:55 | Discharge Summary ---
Date of Service January 02, 2024 Admission HPI Per Admitting Provider Alysia is a pleasant 83-year-old female with PMH of urge and stress incontinence, HLD, tricuspid regurg, spinal stenosis, hemorrhoids, chronic back pain, HTN, and depression with anxiety. She presented for weakness and chills while using the bathroom x 1 week, as well as gross hematuria the evening of 12/30. Patient reports she was having urethral pain and on Monday night 12/29, as well as burning with urination. She is on daily outpatient Keflex for recurrent UTIs, and has been for the past 6 months. She tried doubling up her Keflex at the beginning of last week as she thought she was having a UTI come on. No prior history of kidney stones. She was previously on Keflex outpatient prescribed per her PCP for recurrent UTIs. She endorses pressure in her suprapubic region, that has been constant over the past week. The burning sensation that developed Monday night has since resolved, but she notes that hematuria has been ongoing since last night. No recent changes in diet; patient has been tolerating solids and fluids without nausea and vomiting. She tried taking Tylenol 500 mg x 2 tablets twice daily for intermittent back pain, and chills. She notes that she has chronic back pain and was supposed to have an ablation done on 12/28 that was canceled. Patient is hypertensive at 161/75 at time of admission; vitals otherwise stable. ED course: Rocephin 2000 mg IV NSS 500 mL IV x 2 Acetaminophen 1000 mg IV Tamsulosin 0.4 mg p.o. ROS: Patient endorses chills, sweating episodes, back pain (ongoing), genital discomfort, burning with urination, hematuria, and weakness in legs. Patient denies fever, dizziness, lightheadedness, ASTUDILLO, falls, fainted, chest pain, SOB, cough, abdominal pain, N/V/D, flank pain, saddle anesthesia, or numbness/tingling in the legs. Principal Diagnosis Left ureteral calculus/ureteral colic, hematuria, left hydronephrosis Discharge Exam General-alert and oriented x3, no fever, no chills HEENT-head atraumatic and normocephalic, pupils equal and reactive to light, extraocular muscles intact Neck-no lymphadenopathy or thyromegaly, trachea midline Chest-clear to auscultation. No rales, wheezing or rhonchi Cardiac-regular rate and rhythm, normal S1 and S2 Abdomen-normal bowel sounds, nontender, no hepatosplenomegaly Extremities-no cyanosis, clubbing, or edema Neuro-cranial nerves II through XII intact, motor and sensory function within normal limits, strength symmetrical, no focal deficits Psych-normal affect, normal mood Discharge Data Allergies Allergy/AdvReac Type Severity Reaction Status Date / Time Sulfa (Sulfonamide Allergy Unknown BLISTERS Verified 10/10/23 13:09 Antibiotics) IN MOUTH Consultations 12/31/23 14:08 ED Decision to Admit Stat 12/31/23 16:42 Consult Urology Routine Procedures Performed Operation Date: 01/01/24 09:00 Actual Procedures p Cystoscopy, Left Retrograde Pyelogram, Ureteroscopy, Laser Treatment of Stone and Basket Extraction(Right) - Talon Dc DO s Left Ureteral Stent Placement(Left) - Talon Dc DO Ordered Studies 12/31/23 12:22 CT abd pelvis wo con Stat 01/01/24 14:30 FL retrograde includes kub Routine Hospital Course (1) Left nephrolithiasis: Urology consultation appreciated. She underwent cystoscopy on January 01, with left stent placement and laser lithotripsy completed. Pain control measures. Treated while hospitalized with IV fluids. Creatinine remains stable. (2) UTI (urinary tract infection): Only pinpoint growth isolated. Treated while hospitalized with intravenous Rocephin. She will resume her usual Keflex dosage at discharge. Plan Home today, January 02. She will use Oxy IR as needed. She will remain on Keflex and Flomax and follow-up with urology as an outpatient. Total Time Total Time Spent Total Time Spent (In Minutes): 45-minute Discharge Plan Discharge Items Patient Disposition: Home - Self-Care Reason For Visit: NEPHROLITHIASIS Discharge Diagnosis: Left ureteral calculus/ureteral colic Condition on Discharge: Good Activity: Resume your previous activity Non-emergency contact: Primary Care Provider and Urologist Call non-emergency contact if: you have any medication questions and your symptoms worsen Follow-up/Referrals: Jacob Jones MD [Primary Care Provider] - Talon Dc DO [Physician] - 01/10/24 3:00 pm Diet: Regular Addtl Attending Provider Instructions: Take Flomax daily. Resume taking Keflex (cephalexin) as before. Use oxycodone as needed for any recurrent pain. Follow-up with urology as instructed Addtl Wood Turning Lathe Operator Provider Instructions: Please take all medications as prescribed and keep all follow-ups as scheduled. Please call the urology office at [phone] with any questions, concerns or need to reschedule appointments for any reason. We are happy to assist you. While you have a ureteral stent in place: Some discomfort is normal. Certain movements may trigger pain or a feeling that you need to urinate. You may also feel mild soreness or pressure before or during urination. These symptoms should go away a few days after the stent is removed. Your urine may be slightly pink or red. This is due to bleeding caused by minor irritation from the stent. This may happen on and off while you have the stent, it is not harmful and is to be expected. Medication to help minimize discomfort or bladder spasms, or to prevent infection may be prescribed. Take this as directed. Drink plenty of fluids to help flush out your urinary tract. How long will you need a stent? An appointment should already be made for you for stent removal, unless directed otherwise. When to call [facility] at [phone]: Your urine contains heavy blood clots You are constantly leaking urine Fever of 101F or higher, chills, nausea, or vomiting Your pain is not relieved with medication The end of the stent comes out of your urethra Pending Studies at Discharge: No Stand-Alone Forms: My [facility] [employer], Smoking Cessation Medications and DC Order Prescriptions: No Action bupropion HCl 150 mg tablet extended release 24 hr 150 mg PO DAILY Qty: 90 3RF citalopram 10 mg tablet 10 mg PO DAILY Qty: 90 3RF Gemtesa 75 mg tablet 75 mg PO DAILY Qty: 90 3RF simvastatin 40 mg tablet 40 mg PO HS Qty: 90 3RF clonazepam 1 mg tablet 1 mg PO Q12H PRN (Reason: anxiety) Qty: 180 0RF cephalexin 250 mg capsule 250 mg PO DAILY Qty: 90 0RF cholecalciferol (vitamin D3) 2,000 unit tablet 4,000 units PO DAILY ascorbic acid (vitamin C) 500 mg tablet 500 mg PO QAM lisinopril 20 mg tablet 20 mg PO DAILY Qty: 90 3RF Admission Data Admit Date/Time: 12/31/23 14:50 Attending Provider: Zac Stauffer Admit Provider: Shakir Greenwood Primary Care Provider: Jacob Jones Other Providers: Shakir Greenwood; Talon Dc Coding Level of Care Code 58350 INP/OBS DISCH >30 MIN Diagnoses Left nephrolithiasis N20.0 UTI (urinary tract infection) N39.0
[2024-01-02] MEDS: oxyCODONE HCL IR 5 MG TAB (IMMEDIATE RELEASE) PO STA (12:00)
--- NOTE | 2024-01-02 14:04 | Urology Progress Note ---
Date of Service January 02, 2024 Assessment & Plan (1) Left ureteral calculus: (2) Hematuria: (3) Pelvic pain: Plan 83yo F who presented with hematuria and found to have a 6mm proximal left ureteral stone. Postop day #1 status post Cystoscopy with left retrograde pyelogram, left ureteral stent placement, ureteroscopy, laser treatment of stone, basket extraction with Dr. Dc. Afebrile and hemodynamically stable. Labs show no leukocytosis and normal renal function. Urine culture final with more than 3 types of organisms, low counts. Voiding spontaneously. Okay to d/c from perspective when medically stable. Recommend Tamsulosin and prn pain medication for stent management. Expected clinical course reviewed, all questions glenny Will arrange outpatient follow-up with our service for stent removal. Urology will sign-off. Please call with any further questions or concerns. Admission and Anticipated Discharge Date Admission Date: December 31, 2023 Subjective Patient seen at bedside this afternoon. Awake, resting in bed on arrival. No acute distress. She does report lower abdominal/suprapubic discomfort but seems to be improving today. Voiding without issue. Some hematuria and dysuria as expected. Denies fever, chills, nausea, vomiting. Eager for discharge home today. Review of Systems Constitutional: as per Subjective / HPI Gastrointestinal: as per Subjective / HPI Genitourinary: as per Subjective / HPI Physical Exam Constitutional: no acute distress Respiratory: no respiratory distress and no labored breathing Skin: No visible rashes or lesions to exposed skin areas Neurologic: moves all extremities and awake Psychiatric: A+Ox3, euthymic affect Results & Data Vital Signs (Past 12 Hours) Vital Signs Temp Pulse Resp BP Pulse Ox O2 Del Method 01/02/24 07:57 36.9 C 69 16 140/70 94 Room Air PG Care Time/CCT Total # of Minutes Spent Total Time Spent with Patient: Total time spent is greater than 50% in coordination of care (as documented) at patient's floor/unit and/or counseling patient: Coding Level of Care Code 83907 SUB INP/OBS CARE 2/35MIN Diagnoses Left ureteral calculus N20.1 Hematuria R31.0 Hematuria type: gross Pelvic pain R10.2 (2) Hematuria Hematuria type: gross Qualified Code(s): R31.0 - Gross hematuria
== END 2024-01-02 15:30 | disposition home or self-care (01) | DRG 661 ==
LOC: ED 11:56 → 3N 14:50 → SUATTDRO 14:50 → INTOOBSV 14:50 → 3N 16:20

== ENCOUNTER 2025-03-29 09:50 | Inpatient (IN) ==
--- NOTE | 2025-03-29 10:13 | Emergency Department Note ---
Impression & Plan Acute right flank pain Admission ED Provider Note HPI: History obtained from patient. The patient is a 84-year-old female who presents emergency department with a chief complaint of bilateral flank pain. Patient states this pain has been ongoing for several weeks, patient states that she has had conversations with the urology service in regards to having a lithotripsy performed. Patient states that she was to have this done yesterday but it was canceled. Patient states she continues to have flank pain and therefore she was in discussion with Dr. Dc office and was advised to come to the emergency room so that lithotripsy could be performed. On arrival here to the ED the patient is hemodynamically stable, she otherwise appears to be in no acute distress. ROS: - Per HPI Differential Diagnosis: Kidney stone, pyelonephritis, costochondritis, urinary tract infection, compression fracture, amongst other potential pathologies. *Outpatient medications and allergy history reviewed. PE: General: Alert, no acute distress HEENT: Normocephalic, trachea midline Eyes: Extraocular eye movement is intact, no scleral erythema Pulmonary: Clear to auscultation bilaterally, no wheezing Cardio: Regular rate and rhythm GI: Abdomen is soft to palpation : No suprapubic tenderness, mild tenderness in the bilateral flank area to palpation MSK: No evidence of trauma or malformation of the extremities, no edema Skin: No evidence of rash Neuro: Alert, no focal deficits Psychiatric: Cooperative INDEPENDENT INTERPRETATIONS: property assessment monitor: (As interpreted by myself): - An order was placed for continuous cardiac monitoring - Patient was noted to be in sinus rhythm with a rate of 70 Interventions provided in ED: - IV fluid bolus, IV Tylenol Medical Decision Making: IV was established and lab work obtained, patient was placed on teletypesetter monitor. Lab work shows no leukocytosis, hemoglobin is normal, platelet count is normal, CMP does not show any evidence of any critical findings. Urinalysis does not show any abnormalities. CT imaging of the abdomen pelvis was obtained that shows nephrolithiasis bilaterally without any obstructing stones in the ureter. I discussed the patient's presentation with on-call urology, Dr. Dc, and he did evaluate the patient at the bedside and reviewed CT imaging. Following his evaluation he requested admission so that lithotripsy could potentially be performed. Patient was in agreement to this plan. Patient was placed for admission in stable condition. Patient's presentation was discussed with the on-call hospitalist, Dr. Avery. Consultants/Discussions held with other healthcare providers: - Urology, Dr. Dc - Hospitalist, Dr. Avery Disposition discussion held by myself with: - Patient Diagnosis: 1. Flank pain, acute 2. Bilateral nephrolithiasis, acute Disposition: Admission Marco Antonio Cook DO Emergency Medicine Past Med/Surg History Problem List (Updated 03/29/25 @ 14:10 by Marco Antonio Cook DO) Acute right flank pain (Acute) Renal colic Pes anserinus bursitis of right knee Right knee pain Encounter for preoperative assessment (Acute) Cervical radiculopathy Nephrolithiasis (Chronic) Periscapular pain Generalized weakness Medication monitoring encounter Pes anserine bursitis Contusion, knee Osteoarthritis of both knees Left shoulder strain Lumbar facet joint syndrome Lumbar postlaminectomy syndrome Trigger middle finger of right hand Urge and stress incontinence (Chronic) Atrophic vaginitis (Chronic) Neck Pain Prediabetes Hyperlipidemia (Acute) Tricuspid regurgitation (Acute) Back pain (Acute) Sinusitis (Acute) Vitamin D deficiency (Acute) Spinal stenosis (Acute) Osteoporosis screening (Acute) Internal hemorrhoids (Acute) External hemorrhoid (Acute) Diverticulosis (Acute) Depression with anxiety (Acute) Dairy product intolerance (Acute) Constipation (Acute) Chronic interstitial cystitis (Chronic) Chronic back pain (Chronic) Anxiety (Acute) Abnormal mammography (Acute) Osteopenia (Chronic) HTN (hypertension) (Chronic) Excessive sweating Medical History (Updated 03/29/25 @ 14:10 by Marco Antonio Cook DO) Osteoarthritis Lumbar facet joint syndrome Anxiety and depression Chronic interstitial cystitis Hematuria UTI (urinary tract infection) Environmental and seasonal allergies Hypertension Hyperlipidemia Hx of deep venous thrombosis hx 30 yrs ago right calf Surgical History History of cystoscopy Status post trigger finger release History of arthroplasty of left shoulder states was not joint replacement it was arthroscopic shoulder surgery History of esophagogastroduodenoscopy (EGD) Hx of colonoscopy Hx of arthroscopy of shoulder History of cataract surgery approx 2014 History of arthroscopic knee surgery History of total hysterectomy History of back surgery x 3 History of cholecystectomy Family History Brother Colorectal cancer Sister Colorectal cancer Father Myocardial infarction Mother Cardiac disorder Other No family history of adverse response to anesthesia Denies family history of Ovarian cancer Prostate cancer Diabetes Breast cancer Social History Smoking Status: Never smoker Second Hand Exposure: No; Do You Dip or Chew Tobacco: No; Hx Alcohol Use: No Hx Substance Use: No Preferred Language: Lao Communication Ability: Effective Visual Impairment: No Limitations Hearing Ability: Normal Mastic Sprayer Required: No Beliefs That Will Affect Care: None marital status: / Current Living Situation: Alone current occupational status: retired 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 [employer] Feels Safe at Home: Yes Childhood Exposure to Second-Hand Smoke: No Diet: regular caffeine: Yes Dental Care, Regularly: Yes Physical Activity Frequency: Does not Exercise Seatbelt Use: always Sunscreen Use: Yes Assistive Devices: Cane Allergies Allergies Allergy/AdvReac Type Severity Reaction Status Date / Time Sulfa (Sulfonamide Allergy Intermediate BLISTERS Verified 03/29/25 12:09 Antibiotics) IN MOUTH doxycycline AdvReac Mild pruritis Verified 03/29/25 12:09 Home Meds Home Medications Medication Instructions Recorded Confirmed ascorbic acid (vitamin C) 500 mg 500 mg PO QAM 06/19/19 03/29/25 tablet cholecalciferol (vitamin D3) 50 4,000 units PO QAM 06/19/19 03/29/25 mcg (2,000 unit) tablet bupropion HCl 150 mg 24 hr tablet, 150 mg PO QAM 03/19/25 03/29/25 extended release citalopram 10 mg tablet 10 mg PO QAM 03/19/25 03/29/25 collagen (bovine) 100 % topical 1 ea topical QAM 03/19/25 03/29/25 powder in packet lisinopril 30 mg tablet 30 mg PO QAM 03/19/25 03/29/25 vibegron 75 mg tablet (Gemtesa) 75 mg PO QAM 03/29/25 03/29/25 Previous Rx's Medication Instructions Recorded simvastatin 40 mg tablet 40 mg PO HS #90 tabs 11/15/24 Results & Data (ED) Vital Signs Vital Signs - 24 hr 03/29/25 09:55 03/29/25 10:31 03/29/25 10:35 Temperature 36.5 C Temperature Source Oral Pulse Rate 90 80 Pulse Rate [Apical] 79 Pulse Rhythm Respiratory Rate 16 16 Respiratory Effort / Characteristics Non-Labored Spontaneous Non-Labored Spontaneous Respiratory Depth Normal Normal Blood Pressure 137/80 Blood Pressure [Left Arm] 151/78 H Blood Pressure Mean 99 Blood Pressure Mean [Left Arm] 102 Pulse Oximetry 95 94 Oxygen Delivery Method Room Air Room Air Sepsis Recent Fever Within 48 Hours No Sepsis New/Unexplained Change in Mental Status No Sepsis Action Taken by Nursing No Action Required 03/29/25 10:35 03/29/25 12:00 03/29/25 12:34 Temperature Temperature Source Pulse Rate 78 Pulse Rate [Apical] 64 69 Pulse Rhythm Regular Respiratory Rate 16 16 16 Respiratory Effort / Characteristics Non-Labored Spontaneous Non-Labored Spontaneous Respiratory Depth Normal Normal Blood Pressure Blood Pressure [Left Arm] 157/74 H 159/80 H Blood Pressure Mean Blood Pressure Mean [Left Arm] 101 106 Pulse Oximetry 94 98 96 Oxygen Delivery Method Room Air Room Air Room Air Sepsis Recent Fever Within 48 Hours Sepsis New/Unexplained Change in Mental Status Sepsis Action Taken by Nursing Laboratory Data 03/29/25 10:28 03/29/25 10:28 Lab Results 03/29/25 Range/Units 10:28 WBC 7.84 (4.8-10.8) K/ul RBC 4.90 (4.20-5.40) M/uL Hgb 15.3 (12.0-16.0) g/dl Hct 44.4 (37.0-47.0) % MCV 90.6 (80.0-100.0) fL MCH 31.2 (25.0-34.0) pg MCHC 34.5 (32.0-36.0) g/dL RDW Std Deviation 42.0 (36.4-46.3) fL RDW Coeff of Natali 12.5 (11.5-14.5) % Plt Count 235 (130-400) K/uL MPV 10.1 (9.4-12.4) fL Immature Gran % (Auto) 0.4 % Neut % (Auto) 60.3 % Lymph % (Auto) 29.0 % [place] % (Auto) 8.0 % Eos % (Auto) 1.9 % Baso % (Auto) 0.4 % Neut # (Auto) 4.73 (1.40-6.50) K/uL Lymph # (Auto) 2.27 (1.20-3.40) K/uL [place] # (Auto) 0.63 H (0.11-0.59) K/uL Eos # (Auto) 0.15 (0.00-0.50) K/uL Baso # (Auto) 0.03 (0.00-0.20) K/uL Immature Gran # (Auto) 0.03 (0.01-0.20) K/uL Sodium 141 (136-145) mmol/L Potassium 3.9 (3.5-5.1) mmol/L Chloride 108 H (98-107) mmol/L Carbon Dioxide 26 (21-32) mmol/L Anion Gap 7 (3-11) BUN 15 (6-23) mg/dl Creatinine 0.60 (0.6-1.2) mg/dl Est Cr Clr Drug Dosing 62.3 ml/min eGFR 87.36 BUN/Creatinine Ratio 25.0 H (10-20) Glucose 93 (70-99(Fasting)) mg/dl Calcium 9.4 (8.6-10.3) mg/dl Total Bilirubin 0.6 (0.2-1.0) mg/dl AST 18 (13-39) U/L ALT 16 (7-52) U/L Alkaline Phosphatase 56 (34-104) U/L Total Protein 6.6 (6.0-8.3) gm/dl Albumin 4.3 (3.4-5.0) gm/dl Globulin 2.3 L (2.5-4.0) gm/dl Albumin/Globulin Ratio 1.9 (0.9-2) Lipase 8 L (11-82) U/L Urine Color Yellow Urine Appearance Clear (Clear) Urine pH 5.5 (4.5-7.5) Ur Specific [place] 1.010 (1.000-1.030) Urine Protein Negative (Negative) Urine Glucose (UA) Negative (Negative) Urine Ketones Negative (Negative) Urine Blood Negative (Negative) Urine Nitrite Negative (Negative) Urine Bilirubin Negative (Negative) Urine Urobilinogen Negative (Negative) Ur Leukocyte Esterase Negative (Negative) Urine Comment Administered Medications Discontinued Medications Sodium Chloride (Nss) 500 mls @ 999 mls/hr IV .Q31M STA Stop: 03/29/25 10:30 Last Infusion: 03/29/25 11:07 Dose: Infused Documented By: Admin: 03/29/25 10:33 Dose: 999 mls/hr Documented By: ROBERTO Acetaminophen (Ofirmev) 1,000 mg in 100 mls @ 400 mls/hr IV NOW STA Stop: 03/29/25 10:30 Last Infusion: 03/29/25 10:48 Dose: Infused Documented By: Admin: 03/29/25 10:33 Dose: 400 mls/hr Documented By: ROBERTO Imaging Data Radiologist's Impression: Abdomen/Pelvis CT 03/29/25 10:[address] WITHOUT CONTRAST CT DOSE: 1038.96 mGy.cm HISTORY: Acute bilateral flank pain flank pain TECHNIQUE: Multiaxial CT images of the abdomen and pelvis were performed without contrast. A dose lowering technique was utilized adhering to the principles of ALARA. COMPARISON STUDY: 12/31/2023, October 07, 2011. FINDINGS: No acute lower thoracic abnormality. Bibasilar atelectasis versus scarring. 5 mm benign solid nodule in the right middle lobe it is unchanged dating back to 2010. No pneumatosis or pneumoperitoneum. The unenhanced spleen and liver appear unremarkable. Cholecystectomy. Atrophic pancreas with parenchymal calcifications compatible with chronic pancreatitis. The right adrenal gland appears normal and there is an unchanged 1.5 cm left adrenal adenoma. There are a few scattered nonobstructing catheter with the kidneys measuring up to 2 mm on the left and 4 mm on the right. No ureteral calculi or hydronephrosis. Unremarkable urinary bladder. Uterus appears surgically absent. Atherosclerosis of the aorta without aneurysm. No lymphadenopathy. Colonic diverticulosis without acute diverticulitis. Moderate colonic fecal retention. Normal appendix. Degenerative and postoperative changes of the spine. No acute fracture. IMPRESSION: 1. Nonobstructing bilateral nephrolithiasis. No ureteral calculi or hydronephrosis. 2. No bowel obstruction or bowel wall thickening. 3. Evidence of chronic pancreatitis. 4. Cholecystectomy. ACT 112: Negative or not required by law. The above report was generated using voice recognition software. It may contain grammatical, syntax or spelling errors. Electronically signed by: Ivan Thao M.D. 03/29/2025 10:58 AM Discharge Plan Visit Data Chief Complaint: Kidney Stone Stated Complaint: REF BY DOC, KIDNEY STONES ED Provider: Marco Antonio Cook Discharge Problem: Acute right flank pain Patient Disposition: Admitted As Inpatient Condition: Fair Discharge Instructions Interventions: ED Discharge Assessment Last Done: 03/29/25 12:55
[2025-03-29] MEDS: SODIUM CHLORIDE 0.9% 500 ML IV STA (10:33)
[2025-03-29] MEDS: ACETAMINOPHEN 1,000 MG/100 ML VIAL IV STA (10:33)
[2025-03-29 10:41] LABS: Basophils # (auto) 0.03 K/uL (0.00-0.20); Basophils % (auto) 0.4 %; Eosinophils # (auto) 0.15 K/uL (0.00-0.50); Eosinophils % (auto) 1.9 %; Hematocrit (blood only) 44.4 % (37.0-47.0); Hemoglobin 15.3 g/dl (12.0-16.0); Immature Granulocytes # (auto) 0.03 K/uL (0.01-0.20); Immature Granulocytes % (auto) 0.4 %; Lymphocytes # (auto) 2.27 K/uL (1.20-3.40); Mean Corpuscular Hemoglobin 31.2 pg (25.0-34.0); Mean Corpuscular Hgb Conc 34.5 g/dL (32.0-36.0); Mean Corpuscular Volume 90.6 fL (80.0-100.0); Mean Platelet Volume 10.1 fL (9.4-12.4); Monocytes # (auto) 0.63 K/uL (0.11-0.59); Neutrophils # (auto) 4.73 K/uL (1.40-6.50); Neutrophils % (auto) 60.3 %; Platelet Count 235 K/uL (130-400); RDW Coefficient of Variation 12.5 % (11.5-14.5); White Blood Count 7.84 K/ul (4.8-10.8)
[2025-03-29 10:47] LABS: Appearance Urine Clear (Clear); Bilirubin Urine Negative (Negative); Blood Urine Negative (Negative); Color Urine Yellow; Glucose Urine UA Negative (Negative); Ketones Urine Negative (Negative); Leukocyte Esterase Urine Negative (Negative); Nitrite Urine Negative (Negative); Protein Urine Negative (Negative); Urobilinogen Urine Negative (Negative); pH Urine 5.5 (4.5-7.5)
--- NOTE | 2025-03-29 11:00 | CT Scan Report ---
ABDOMEN AND PELVIS CT WITHOUT CONTRAST CT DOSE: 1038.96 mGy.cm HISTORY: Acute bilateral flank pain flank pain TECHNIQUE: Multiaxial CT images of the abdomen and pelvis were performed without contrast. A dose lo wering technique was utilized adhering to the principles of ALARA. COMPARISON STUDY: 12/31/2023, October 07, 2011. FINDINGS: No acute lower thoracic abnormality. Bibasilar atelectasis versus scarring. 5 mm benign jayna id nodule in the right middle lobe it is unchanged dating back to 2010. No pneumatosis or pneumoperit oneum. The unenhanced spleen and liver appear unremarkable. Cholecystectomy. Atrophic pancreas with p arenchymal calcifications compatible with chronic pancreatitis. The right adrenal gland appears marii l and there is an unchanged 1.5 cm left adrenal adenoma. There are a few scattered nonobstructing catheter with the kidneys measuring up to 2 mm on the left a nd 4 mm on the right. No ureteral calculi or hydronephrosis. Unremarkable urinary bladder. Uterus emiliano ears surgically absent. Atherosclerosis of the aorta without aneurysm. No lymphadenopathy. Colonic di verticulosis without acute diverticulitis. Moderate colonic fecal retention. Normal appendix. Degener ative and postoperative changes of the spine. No acute fracture. IMPRESSION: 1. Nonobstructing bilateral nephrolithiasis. No ureteral calculi or hydronephrosis. 2. No bowel obstruction or bowel wall thickening. 3. Evidence of chronic pancreatitis. 4. Cholecystectomy. ACT 112: Negative or not required by law. The above report was generated using voice recognition software. It may contain grammatical, syntax o r spelling errors. Electronically signed by: Ivan Thao M.D. 03/29/2025 10:58 AM
[2025-03-29 11:01] LABS: Albumin Globulin Ratio 1.9 (0.9-2); Albumin Level 4.3 gm/dl (3.4-5.0); Bilirubin,Total 0.6 mg/dl (0.2-1.0); Calcium 9.4 mg/dl (8.6-10.3); Creatinine Clr Calc Pharmacy 62.3 ml/min; Globulin 2.3 gm/dl (2.5-4.0); Potassium 3.9 mmol/L (3.5-5.1); Total Protein 6.6 gm/dl (6.0-8.3)
--- NOTE | 2025-03-29 12:27 | History & Physical Report ---
Date of Service March 29, 2025 Assessment & Plan (1) Nephrolithiasis: Plan: Patient with bilateral back pain. UA is negative for uti patient will be admitted for ESWL. Plan Anxiety: resume home meds of celexa. HTN (hypertension): resume home meds History of Present Illness Chief Complaint: bilateral flank pain Primary Care Provider: Jacob Jones MD 84 yo female [facility] described below eports having bilateral flank pain for several weeks. She was to have lithotripsy yesterday but this was cancelled. Due to wroseneing pain, patient came to the ED Allergies Allergy/AdvReac Type Severity Reaction Status Date / Time Sulfa (Sulfonamide Allergy Intermediate BLISTERS Verified 03/29/25 12:09 Antibiotics) IN MOUTH doxycycline AdvReac Mild pruritis Verified 03/29/25 12:09 Home Medications Medication Instructions Recorded Confirmed Type ascorbic acid (vitamin C) 500 mg 500 mg PO QAM 06/19/19 03/29/25 History tablet cholecalciferol (vitamin D3) 50 4,000 units PO QAM 06/19/19 03/29/25 History mcg (2,000 unit) tablet simvastatin 40 mg tablet 40 mg PO HS #90 tabs 11/15/24 03/29/25 Rx bupropion HCl 150 mg 24 hr tablet, 150 mg PO QAM 03/19/25 03/29/25 History extended release citalopram 10 mg tablet 10 mg PO QAM 03/19/25 03/29/25 History collagen (bovine) 100 % topical 1 ea topical QAM 03/19/25 03/29/25 History powder in packet lisinopril 30 mg tablet 30 mg PO QAM 03/19/25 03/29/25 History vibegron 75 mg tablet (Gemtesa) 75 mg PO QAM 03/29/25 03/29/25 History Past Med/Surg History Problem List Ureteral stent displacement Acute right flank pain (Acute) Renal colic Pes anserinus bursitis of right knee Right knee pain Encounter for preoperative assessment (Acute) Cervical radiculopathy Nephrolithiasis (Chronic) Periscapular pain Generalized weakness Medication monitoring encounter Pes anserine bursitis Contusion, knee Osteoarthritis of both knees Left shoulder strain Lumbar facet joint syndrome Lumbar postlaminectomy syndrome Trigger middle finger of right hand Urge and stress incontinence (Chronic) Atrophic vaginitis (Chronic) Neck Pain Prediabetes Hyperlipidemia (Acute) Tricuspid regurgitation (Acute) Back pain (Acute) Sinusitis (Acute) Vitamin D deficiency (Acute) Spinal stenosis (Acute) Osteoporosis screening (Acute) Internal hemorrhoids (Acute) External hemorrhoid (Acute) Diverticulosis (Acute) Depression with anxiety (Acute) Dairy product intolerance (Acute) Constipation (Acute) Chronic interstitial cystitis (Chronic) Chronic back pain (Chronic) Anxiety (Acute) Abnormal mammography (Acute) Osteopenia (Chronic) HTN (hypertension) (Chronic) Excessive sweating Medical History Osteoarthritis Lumbar facet joint syndrome Anxiety and depression Chronic interstitial cystitis Hematuria UTI (urinary tract infection) Environmental and seasonal allergies Hypertension Hyperlipidemia Hx of deep venous thrombosis hx 30 yrs ago right calf Surgical History History of cystoscopy Status post trigger finger release History of arthroplasty of left shoulder states was not joint replacement it was arthroscopic shoulder surgery History of esophagogastroduodenoscopy (EGD) Hx of colonoscopy Hx of arthroscopy of shoulder History of cataract surgery approx 2014 History of arthroscopic knee surgery History of total hysterectomy History of back surgery x 3 History of cholecystectomy Family History Brother Colorectal cancer Sister Colorectal cancer Father Myocardial infarction Mother Cardiac disorder Other No family history of adverse response to anesthesia Denies family history of Ovarian cancer Prostate cancer Diabetes Breast cancer Social History Smoking Status: Never smoker Second Hand Exposure: No; Do You Dip or Chew Tobacco: No; Hx Alcohol Use: No Hx Substance Use: No Preferred Language: Azerbaijani Communication Ability: Effective Visual Impairment: No Limitations Hearing Ability: Normal Sandwich Board Carrier Required: No Beliefs That Will Affect Care: None marital status: / Current Living Situation: Alone current occupational status: retired 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 Feels Safe at Home: Yes Childhood Exposure to Second-Hand Smoke: No Diet: regular caffeine: Yes Dental Care, Regularly: Yes Physical Activity Frequency: Does not Exercise Seatbelt Use: always Sunscreen Use: Yes Assistive Devices: Cane Review of Systems Constitutional: no fever and no body aches Eyes: no blind spots Ear, Nose, Mouth, Throat: no ear pain Respiratory: no cough Cardiovascular: no chest pain and no radiating jaw, neck or arm pain Gastrointestinal: no abdominal pain and no early satiety Musculoskeletal: no back pain and no loss of height Integumentary: no rash Neurologic: no gait abnormality and no localized weakness Physical Exam Constitutional: WD/WN, vitals as above Eyes: PERRL, conjunctivae normal, anicteric sclerae ENMT: external ear and nose normal, oropharynx normal Neck: trachea midline, no thyromegaly Respiratory: normal respiratory effort, lungs clear to auscultation Cardiovascular: RRR, no murmur, no edema Gastrointestinal (Abdomen): normal bowel sounds, soft, nontender, no hepatosplenomegaly Results & Data Results & Data Vital Signs (Past 12 Hours) Vital Signs Temp Pulse Pulse Resp BP BP Pulse Ox 03/29/25 10:35 78 16 94 03/29/25 10:35 79 16 151/78 H 94 03/29/25 10:31 80 03/29/25 09:55 36.5 C 90 16 137/80 95 O2 Del Method 03/29/25 10:35 Room Air 03/29/25 10:35 Room Air 03/29/25 10:31 03/29/25 09:55 Room Air PG Care Time/CCT Total # of Minutes Spent Total Time Spent with Patient: Total time spent is greater than 50% in coordination of care (as documented) at patient's floor/unit and/or counseling patient: Coding Level of Care Code 30397 INT INP/OBS CARE 3/75MIN Diagnoses Nephrolithiasis N20.0
--- NOTE | 2025-03-29 12:34 | Urology Consultation ---
Date of Consultation March 29, 2025 Assessment & Plan (1) Renal colic: (2) Nephrolithiasis: (3) Generalized weakness: (4) Atrophic vaginitis: (5) Chronic interstitial cystitis: (6) Constipation: (7) Urge and stress incontinence: (8) Depression with anxiety: (9) HTN (hypertension): (10) Tricuspid regurgitation: (11) Prediabetes: Plan Patient presenting with worsening renal colic, severe episodes of pain and discomfort, and history of stones with severe and significant infections. Patient has complicated urologic history. Has previously had major issues with stones with obstruction and significant episodes of significant infections including most recent infection with Enterobacter. Patient also previously had Klebsiella infections. Patient has been having worsening severe pain coming in waves going down the flank. Has been happening on both the right and left. Does occasionally cross the midline. Patient has known history of stone disease. Had most recently had left-sided stones treated. This was over a year ago in December 2023. Patient extremely anxious about her worsening pain and discomfort especially due to her previous major episodes of infections and issues with obstructing stones. Is very worried that she is developing another episode. Patient had undergone examination. Was assessed by the ER. Plan to have patient admitted with the hospitalist team for observation with assessment by urology for possible intervention due to worsening and bothersome renal colic with kidney stones. Patient independently assessed, examined, interviewed, and evaluated. Patient's vitals and labs were all reviewed. Pertinent values in the HPI and plan section. Hemoglobin 15.3 creatinine 0.6 white cell 7.84. UA was nitrite negative. Other labs and values were reviewed he see the HPI plan section for pertinent values or the records for the full results. Current vitals were moderate hypertension with blood pressure 157/74 pulse 64 respiration 16 temperature 36.5 patient has been afebrile otherwise. Oxygen saturation was 98% on room air. Imaging was reviewed interpreted by myself. Patient has bilateral stones. Has approximately 4 mm stone on the right. No sign of significant or severe infection of the kidneys or perinephric s tranding. Does have likely chronic pancreatitis. Otherwise agree with read. Vitals were reviewed. Discussed findings extensively with patient and family. Reviewed with ER physicians as well as consulting physicians/team. Patient's complicated medical and surgical history was reviewed and summarized above. Patient's surgical, medical, social, and family history were all reviewed with pertinent values as above. Discussed patient's current diagnosis as well as concerns and issues. Reviewed different options moving forward. Discussed potential risks and benefits as well as possible options and concerns. Reviewed potential surgical options and interventions. Discussed potential issues and concerns related to intervention. Risk and benefits were discussed extensively with patient and any available family. Discussed potential risks related to anesthesia. Discussed risks of bleeding infection and injury. Reviewed extensively patient's concern related to ongoing renal colic. Due to severity and increasing bother as well as patient's anxiety about previous episodes of significant infection and stones discussed options for intervention and management. Discussed possible assessment of the kidneys bilaterally. Discussed alternatives. Discussed options for conservative measure and maximum expulsion medical therapy and symptom controlled. Discussed ESWL. Discussed Ureteroscopy with extraction and/or laser lithotripsy. Risks and benefits were discussed. Stone free rates were also discussed as well as possibility of multiple procedures. Ureteral stents were discussed as well as post-operative issues and pain management. All questions were answered. Patient did remain n.p.o. since last night. Had a drink of water with her pills this morning otherwise has had no other oral intake. Patient was anxious about possibly needing procedure and had maintained an n.p.o. status in case she needed to undergo intervention. Risks and benefits discussed at length for procedure. These include bleeding, infection, injury to surrounding tissues or organs, and risks associated with anesthesia. Patient states understanding and agrees to proceed. Will sign consent and proceed Plan for cystoscopy with possible bilateral ureteroscopy possible stone treatment with laser lithotripsy possible bilateral stent. Patient will likely need observation after procedure. We may need to have antibiotics continuing after procedure. Will plan to have a dose of Ancef antibiotics with the procedure today. Plan for continued monitoring and supportive care. Will monitor patient after procedure as previously had significant issues with stent discomfort. Will plan to cover with different options for as needed medication for stent discomfort. May consider possibly placing on tether in order to make removal easier. Patient may need further workup if no significant obstruction or other significant source of pain is discovered or if the removal of stones do not drastically improve her significant renal colic issues. Will defer to hospitalist for further workup depending on results after procedure. History of Present Illness History of Present Illness New consultation for patient with stone, discomfort, obstruction, and ill feelings. Patient developed sudden onset of pain into flank going down and radiating into groin and back in waves comes and goes. Can be severe at times. Patient experiencing issues on both sides. Happens intermittently on the different sides. Occasionally goes across the midline. Discussed and reviewed patient's family history for any history of stone disease. Patient has significant history of stones. Has also had a major episode of severe infection with pyelonephritis. Has had significant issues with obstructing stone and severe infection. Has been very anxious about previous stone history and major infections. Patient also is anxious about previous issues with stents. Also, discussed patient's medical surgery history especially related to any history of urinary issues or stone disease. Has previously had major infections most recently was in Enterobacter. Patient is most concerned as the last time she was having similar type flank pain and discomfort with stones she did develop significant infection issues. Patient is being admitted and is undergoing observation. Is going to undergo supportive care. Patient had undergone CT examination. Found to have small bilateral stones with a proximately a 4 mm stone on the right. No sign of significant perinephric stranding. Imaging was reviewed interpreted by myself. Also findings of possible chronic pancreatitis. No other major potential source of ongoing pain. Allergies Allergy/AdvReac Type Severity Reaction Status Date / Time Sulfa (Sulfonamide Allergy Intermediate BLISTERS Verified 03/29/25 12:09 Antibiotics) IN MOUTH doxycycline AdvReac Mild pruritis Verified 03/29/25 12:09 Home Medications Medication Instructions Recorded Confirmed Type ascorbic acid (vitamin C) 500 mg 500 mg PO QAM 06/19/19 03/29/25 History tablet cholecalciferol (vitamin D3) 50 4,000 units PO QAM 06/19/19 03/29/25 History mcg (2,000 unit) tablet simvastatin 40 mg tablet 40 mg PO HS #90 tabs 11/15/24 03/29/25 Rx bupropion HCl 150 mg 24 hr tablet, 150 mg PO QAM 03/19/25 03/29/25 History extended release citalopram 10 mg tablet 10 mg PO QAM 03/19/25 03/29/25 History collagen (bovine) 100 % topical 1 ea topical QAM 03/19/25 03/29/25 History powder in packet lisinopril 30 mg tablet 30 mg PO QAM 03/19/25 03/29/25 History vibegron 75 mg tablet (Gemtesa) 75 mg PO QAM 03/29/25 03/29/25 History Patient History Medical History (Updated 03/29/25 @ 12:33 by Talon Dc DO) Osteoarthritis Lumbar facet joint syndrome Anxiety and depression Chronic interstitial cystitis Hematuria UTI (urinary tract infection) Environmental and seasonal allergies Hypertension Hyperlipidemia Hx of deep venous thrombosis hx 30 yrs ago right calf Surgical History History of cystoscopy Status post trigger finger release History of arthroplasty of left shoulder states was not joint replacement it was arthroscopic shoulder surgery History of esophagogastroduodenoscopy (EGD) Hx of colonoscopy Hx of arthroscopy of shoulder History of cataract surgery approx 2014 History of arthroscopic knee surgery History of total hysterectomy History of back surgery x 3 History of cholecystectomy Family History Brother Colorectal cancer Sister Colorectal cancer Father Myocardial infarction Mother Cardiac disorder Other No family history of adverse response to anesthesia Denies family history of Ovarian cancer Prostate cancer Diabetes Breast cancer Social History Smoking Status: Never smoker Second Hand Exposure: No; Do You Dip or Chew Tobacco: No; Hx Alcohol Use: No Hx Substance Use: No Preferred Language: Greek Communication Ability: Effective Visual Impairment: No Limitations Hearing Ability: Normal Breeding Manager Required: No Beliefs That Will Affect Care: None marital status: / Current Living Situation: Alone current occupational status: retired 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 Patient is well nourished and well kept. HEENT: Normocephalic Atraumatic. Inspection normal. Cranial Nerves 2-12 Grossly intact. Nares are clear. Neck is supple. Normal inspection of face. Normal inspection of neck. Neurologic: No deficits on inspection. Baseline for motor function and sensory. Psychologic: Normal affect. Respiratory: Nonlabored. No use of accessory muscles. No tachypnea or dyspnea. Cardiovascular: No tachycardia Skin: [place] and Dry. No rashes or visible lesions. Extremities: Moving without issues. No motor deficits on inspection Lymphatics: No edema Abdomen: Soft Non-distended. No rebound or guarding. Results & Data Vital Signs (Past 12 Hours) Vital Signs Temp Pulse Pulse Resp BP BP Pulse Ox 03/29/25 12:00 64 16 157/74 H 98 03/29/25 10:35 78 16 94 03/29/25 10:35 79 16 151/78 H 94 03/29/25 10:31 80 03/29/25 09:55 36.5 C 90 16 137/80 95 O2 Del Method 03/29/25 12:00 Room Air 03/29/25 10:35 Room Air 03/29/25 10:35 Room Air 03/29/25 10:31 03/29/25 09:55 Room Air PG Care Time/CCT Total # of Minutes Spent Total Time Spent with Patient: Total time spent is greater than 50% in coordination of care (as documented) at patient's floor/unit and/or counseling patient: Coding Level of Care Code 31392 INT INP/OBS CARE 375MIN Diagnoses Renal colic N23 Nephrolithiasis N20.0 Generalized weakness R53.1 Atrophic vaginitis N95.2 Chronic interstitial cystitis N30.10 Constipation K59.00 Urge and stress incontinence N39.46 Depression with anxiety F41.8 Primary hypertension I10 Hypertension type: primary hypertension Tricuspid regurgitation I07.1 Prediabetes R73.03 Time Spent (min) 79 (9) HTN (hypertension) Hypertension type: primary hypertension Qualified Code(s): I10 - Essential (primary) hypertension
[2025-03-29] MEDS ORDERED: MoRPHine SULFATE 10 MG/ML CARP/VIAL IV PRN (12:37)
[2025-03-29] MEDS ORDERED: ePHEDrine sulfate 50 MG/ML AMP IV PRN (12:37)
[2025-03-29] MEDS ORDERED: fentaNYL citrate PF 100 MCG/2 ML VIAL IV PRN (12:37)
[2025-03-29] MEDS ORDERED: ATROPINE SULFATE 0.1 MG/ML 10ML SYR IV PRN (12:37)
[2025-03-29] MEDS ORDERED: MEPERIDINE HCL 25 MG/ML CARP/VIAL IV PRN (12:37)
--- NOTE | 2025-03-29 12:37 | Anesthesiology Consultation ---
Date of Service March 29, 2025 Assessment & Plan (1) Nephrolithiasis: Chart Review Chart Review: Acceptable Risk for Surgery Consults Requested none ASA ASA3 Proposed Anesthesia Anesthesia Type: General Risk / Benefits Reviewed With: PT / POA / Parent / Guardian, Accepts Plan and Informed Consent Obtained Additional Comments: rsi if before 2pm due to risk of urosepsis History Surgery Operation Date: 03/29/25 13:30 Proposed Procedures p Cystoscopy Retrograde - Talon Dc DO Height/Weight Height: 5 ft 3 in Weight: 67.9 kg Allergies Allergy/AdvReac Type Severity Reaction Status Date / Time Sulfa (Sulfonamide Allergy Intermediate BLISTERS Verified 03/29/25 12:09 Antibiotics) IN MOUTH doxycycline AdvReac Mild pruritis Verified 03/29/25 12:09 Medications Home Medications Medication Instructions Recorded Confirmed Last Taken ascorbic acid (vitamin C) 500 mg 500 mg PO QAM 06/19/19 03/29/25 03/29/25 tablet cholecalciferol (vitamin D3) 50 4,000 units PO QAM 06/19/19 03/29/25 03/29/25 mcg (2,000 unit) tablet simvastatin 40 mg tablet 40 mg PO HS #90 tabs 11/15/24 03/29/25 03/28/25 bupropion HCl 150 mg 24 hr tablet, 150 mg PO QAM 03/19/25 03/29/25 03/29/25 extended release citalopram 10 mg tablet 10 mg PO QAM 03/19/25 03/29/25 03/29/25 collagen (bovine) 100 % topical 1 ea topical QAM 03/19/25 03/29/25 03/29/25 powder in packet lisinopril 30 mg tablet 30 mg PO QAM 03/19/25 03/29/25 03/29/25 vibegron 75 mg tablet (Gemtesa) 75 mg PO QAM 03/29/25 03/29/25 03/29/25 NPO Date Last Intake of Fluids: 03/29/25 Time Last Intake of Fluids: 06:00 Last Intake of Fluids Comment: Water Date Last Intake of Solids: 03/28/25 Time Last Intake of Solids: 08:00 Last Intake of Solids Comment: One bite of granola bar Past Medical History Medical History (Updated 03/29/25 @ 12:33 by Talon Dc DO) Osteoarthritis Lumbar facet joint syndrome Anxiety and depression Chronic interstitial cystitis Hematuria UTI (urinary tract infection) Environmental and seasonal allergies Hypertension Hyperlipidemia Hx of deep venous thrombosis hx 30 yrs ago right calf Exercise / Class Metabolic Activity II 4-5 Yardwork/Stairs/Walk up hill Past Family History Family History Brother Colorectal cancer Sister Colorectal cancer Father Myocardial infarction Mother Cardiac disorder Other No family history of adverse response to anesthesia Denies family history of Ovarian cancer Prostate cancer Diabetes Breast cancer Past Surgical History Surgical History History of cystoscopy Status post trigger finger release History of arthroplasty of left shoulder states was not joint replacement it was arthroscopic shoulder surgery History of esophagogastroduodenoscopy (EGD) Hx of colonoscopy Hx of arthroscopy of shoulder History of cataract surgery approx 2014 History of arthroscopic knee surgery History of total hysterectomy History of back surgery x 3 History of cholecystectomy Past Anesthesia History No Hx of Anesthesia Complications and No Family Hx of Anesthesia Complications History of PONV No Hx of PONV and No Hx of Motion Sickness Social History Smoking Status: Never smoker Do You Dip or Chew Tobacco: No Hx Alcohol Use: No Hx Substance Use: No substance use type: does not use Physical Exam Vital Signs Last Vital Signs Temp 36.5 C 03/29/25 09:55 Pulse 64 03/29/25 12:00 Resp 16 03/29/25 12:00 BP 157/74 H 03/29/25 12:00 Pulse Ox 98 03/29/25 12:00 O2 Del Method Room Air 03/29/25 12:00 ENMT Mouth: no TMJ abnormality Thyromental Distance: > or= 3.5 Finger Breadths Mallampati Class: II Neck normal visual inspection and trachea midline; neck extension not limited Respiratory normal respiratory effort Auscultation: lungs clear to auscultation bilaterally Cardiovascular Rate/Rhythm: regular rate and regular rhythm Heart Sounds: no murmur Musculoskeletal Spine: normal cervical ROM Extremities: full ROM of extremities Neurologic moves all extremities Psychiatric Orientation: alert and oriented x 3 Testing Laboratory Results 03/29/25 10:28 03/29/25 10:28 Urine Color Yellow 03/29/25 10:28 Urine Appearance Clear (Clear) 03/29/25 10:28 Urine pH 5.5 (4.5-7.5) 03/29/25 10:28 Ur Specific [place]gas 1.010 (1.000-1.030) 03/29/25 10:28 Urine Protein Negative (Negative) 03/29/25 10:28 Urine Glucose (UA) Negative (Negative) 03/29/25 10:28 Urine Ketones Negative (Negative) 03/29/25 10: Urine Nitrite Negative (Negative) 03/29/25 10:28 Ur Leukocyte Esterase Negative (Negative) 03/29/25 10:28 Electrocardiogram Date: 05/06/24 Findings: + NSR @ (73bpm) Chest X-Ray Date: 03/17/25 Findings: + NAD
[2025-03-29] MEDS ORDERED: LIDOCAINE 2% 2 ML VIAL/AMP(20MG/ML) INFIL ONE ×2 (12:40)
[2025-03-29] MEDS ORDERED: ONDANSETRON INJ 2 MG/ML 2 ML VIAL ONE (12:40)
[2025-03-29] MEDS ORDERED: PROPOFOL IV EMULSION 10 MG/ML 20 ML VIAL IV ONE ×3 (12:40→13:27)
[2025-03-29] MEDS ORDERED: SUCCINYLCHOLINE CHLORIDE 20 MG/ML 10 ML VIAL IV ONE (13:27)
[2025-03-29] MEDS ORDERED: ROCURONIUM BROMIDE 10 MG/ML 5 ML VIAL IV ONE (13:28)
[2025-03-29] MEDS ORDERED: fentaNYL citrate PF 100 MCG/2 ML VIAL ONE (13:29)
[2025-03-29] MEDS ORDERED: ceFAZolin 330 MG/ML 1 GM VIAL ONE (13:52)
[2025-03-29] MEDS ORDERED: GLYCOPYRROLATE 0.2 MG/ML VIAL ONE ×3 (14:04→14:06)
[2025-03-29] MEDS ORDERED: NEOSTIGMINE METHYLSULFATE 1 MG/ML 10ML VIAL ONE ×3 (14:04→14:06)
[2025-03-29] MEDS: ceFAZolin 2000MG 2,000 MG/15 ML SYR IV ONE (14:10)
--- NOTE | 2025-03-29 14:48 | Operative Report ---
PG Post Operative Report Pre & Post Diagnosis Operation Date: 03/29/25 13:30 Pre-Op Diagnosis: KIDNEY STONES Post-Op Diagnosis: KIDNEY STONES I identified the patient and participated in the time-out.: Yes Procedure Operation Date: 03/29/25 13:30 Actual Procedures Cystoscopy Right ureteroscopy, Right retrograde pyelogram, Right laser destruction of Ston e, Right Basket extraction of stone, and Right insertion ureteral stent catheter on TETHER Left Ureteroscopy, Left retrograde pyelogram, left ureteral dilation, Left insertion of ureteral stent catheter on TETHER - Talon Dc DO Surgeon Talon Dc, II, DO Data Security Consultant None Estimated Blood Loss 1 Findings Consistent with Post-Op Diagnosis Small left distal ureter stricture. Moderate right Stone in lower pole and additional small right renal stones destroyed to dust and small fragments and larger fragments removed. Specimens Stone Fragments Drains 4.8 Fr x 24 cm bilateral on TETHER Anesthesia Type General Complications none Disposition Disposition: Recovery Room Indications Patient with bothersome stones. Risks and benefits discussed at length. Description of Procedure Patient was consented and brought back to the operating room. Patient was placed under anesthesia in the supine position and moved to the dorsal lithotomy position. Patient was prepped and draped in the regular sterile fashion. A time out was completed identifying the correct patient and procedure. A 30degree Cystoscope was placed into the bladder and the entire bladder was examined. The UO's were identified. The UO was cannulized with a catheter and a retrograde pyelogram was completed. A wire was then placed bilaterally There was a mild to moderate narrowing of the distal ureter on the left. The right side appeared to have likely stones up in the renal pelvis. The left ureter was assessed first. The flexible ureteroscope was taken into the left ureter over the wire. In the distal ureter there was an area of stricture. This was dilated. After dilation the area was inspected. This improved significantly the channel. The scope was then advanced. The remainder of the ureter appeared to be somewhat mildly distended possibly from the stricture at the UO/distal ureter. The scope was advanced into the renal pelvis the renal pelvis was fully inspected. There were 2 small less than 1 mm stones discovered in the upper pole. The stones were able to be displaced they were too small to be able to be grasped. The entire renal pelvis was inspected no major areas of concern or other problems. The scope was then slowly removed. A retrograde pyelogram was completed with contrast going through the scope to allow for stent placement. The scope was removed down to the area of stricture this was inspected no significant injury or major problem. A 4.8 x 24 double-J ureteral stent was placed under direct visualization and confirmed in the renal pelvis. It remained on a tether for easy removal. This was then secured to the edge of the body. Attention then went to the right side. A second safety wire was placed. The flexible ureteroscope was taken into the ureter. The entire ureter and renal pelvis were examined. The stones were identified. A laser fiber was selected and the stones were pulverized to dust an d small fragments. Larger fragments were grasped and removed and sent for analysis. The entire area was once again examined. No residual large fragments or areas of concern were noted. The scope was slowly removed with the wire left in place. Contrast was placed through the scope for a pyelogram to assist in stent placement. The entire ureter was examined as the scope was slowly removed. No obstructions or other areas of concern were noted. With the wire in place, a 4.8 Fr Double J stent was placed. It was confirmed with fluoroscopy. This stent also remained on a tether. This was secured to the leg. With the stent on tether in place, the bladder was emptied. The scope was removed. The patient was cleaned, aroused from anesthesia, and transferred to the pacu in stable condition having tolerated the procedure well with no complications. I was present and participated in all aspects of the procedure. The patient will be monitored in the PACU until transferred. Plan for stent removal with the tether in the next 2 to 5 days. Will plan to monitor patient overnight. Patient undergoing observation with the hospitalist team. I attest to the content of the Intraoperative Record and any orders documented therein. Any exceptions are noted below.
--- NOTE | 2025-03-29 15:03 | Anesthesiology Progress Note ---
Date of Service March 29, 2025 Anesthesia Post Procedure Vital Signs Vital Signs: Temp Pulse Pulse Resp BP BP Pulse Ox 03/29/25 15:00 36.5 C 82 16 143/56 H 94 03/29/25 14:50 84 18 139/58 L 100 03/29/25 14:40 36.0 C L 93 H 20 100/60 99 03/29/25 12:34 69 16 159/80 H 96 03/29/25 12:00 64 16 157/74 H 98 03/29/25 10:35 78 16 94 03/29/25 10:35 79 16 151/78 H 94 03/29/25 10:31 80 03/29/25 09:55 36.5 C 90 16 137/80 95 O2 Del Method O2 Flow Rate 03/29/25 15:00 Room Air 0 03/29/25 14:50 Oxymask 4 03/29/25 14:40 Oxymask 8 03/29/25 12:34 Room Air 03/29/25 12:00 Room Air 03/29/25 10:35 Room Air 03/29/25 10:35 Room Air 03/29/25 10:31 03/29/25 09:55 Room Air Pain Intensity Lower Back: Pain Intensity: 8 Transfer of Care Handoff Completed per policy Notes Mental Status: alert / awake / arousable Patient Amnestic to Procedure: Yes Nausea / Vomiting: adequately controlled Pain: adequately controlled Airway Patency, RR, SpO2: stable & adequate BP & HR: stable & adequate Hydration State: stable & adequate Anesthetic Complications: no major complications apparent and Pt Satisfied with anesthetic care
[2025-03-29] MEDS: KETOROLAC TROMETHAMINE 15 MG/ML VIAL IV PRN (17:16)
[2025-03-29] MEDS: PHENAZOPYRIDINE HCL 200 MG TAB PO STA (17:16)
[2025-03-29] MEDS: ONDANSETRON INJ 2 MG/ML 2 ML VIAL IV PRN (17:23)
[2025-03-29] MEDS: TAMSULOSIN HCL 0.4 MG CAP PO ONE (18:01)
[2025-03-29] MEDS: oxyBUTYnin chloride 5 MG TAB PO PRN (18:01)
[2025-03-29] MEDS: ACETAMINOPHEN 325 MG TAB PO SCH (18:13)
[2025-03-29] MEDS: SIMVASTATIN 40 MG TAB PO SCH (19:58)
[2025-03-29] MEDS: PHENAZOPYRIDINE HCL 200 MG TAB PO PRN (20:17)
[2025-03-29] MEDS ORDERED: COUGH DROP (SUGAR FREE) LOZ 24 LOZ/1 BOX BUCCAL PRN (22:16)
[2025-03-29] MEDS: MELATONIN 3 MG TAB PO PRN (23:16)
[2025-03-29 23:41] VITALS: RESP 18
--- NOTE | 2025-03-29 23:57 | Hospitalist Progress Note ---
Date of Service March 29, 2025 Assessment & Plan Admission and Anticipated Discharge Date Admission Date: March 29, 2025 Physical Exam Constitutional: WD/WN, vitals as above Eyes: PERRL, conjunctivae normal, anicteric sclerae ENMT: external ear and nose normal, oropharynx normal Neck: trachea midline, no thyromegaly Respiratory: normal respiratory effort, lungs clear to auscultation Cardiovascular: RRR, no murmur, no edema Gastrointestinal (Abdomen): normal bowel sounds, soft, nontender, no hepatosplenomegaly Results & Data Results & Data Vital Signs (Past 12 Hours) Vital Signs Temp Pulse Pulse Resp BP Pulse Ox O2 Del Method 03/29/25 23:00 36.7 C 69 18 124/76 94 Room Air 03/29/25 21:00 Room Air 03/29/25 18:45 68 16 113/61 94 Room Air 03/29/25 17:45 36.3 C L 65 16 103/46 L 97 Room Air 03/29/25 16:39 36.4 C L 61 16 98/57 L 94 Room Air 03/29/25 16:11 36.5 C 53 L 17 100/66 92 Room Air 03/29/25 15:48 36.5 C 71 16 132/72 93 Room Air 03/29/25 15:25 73 17 141/55 H 94 Room Air 03/29/25 15:10 75 14 138/59 L 94 Room Air 03/29/25 15:00 36.5 C 82 16 143/56 H 94 Room Air 03/29/25 14:50 84 18 139/58 L 100 Oxymask 03/29/25 14:40 36.0 C L 93 H 20 100/60 99 Oxymask 03/29/25 12:34 69 16 159/80 H 96 Room Air 03/29/25 12:00 64 16 157/74 H 98 Room Air O2 Flow Rate 03/29/25 23:00 03/29/25 21:00 03/29/25 18:45 03/29/25 17:45 03/29/25 16:39 03/29/25 16:11 03/29/25 15:48 03/29/25 15:25 0 03/29/25 15:10 0 03/29/25 15:00 0 03/29/25 14:50 4 03/29/25 14:40 8 05/17/25 12:34 03/29/25 12:00 PG Care Time/CCT Total # of Minutes Spent Total Time Spent with Patient: Total time spent is greater than 50% in coordination of care (as documented) at patient's floor/unit and/or counseling patient: Coding
[2025-03-30] MEDS: oxyCODONE/APAP 7.5/325MG TAB PO PRN (06:08)
[2025-03-30 06:37] LABS: Hematocrit (blood only) 43.6 % (37.0-47.0); Hemoglobin 14.3 g/dl (12.0-16.0); Mean Corpuscular Hemoglobin 30.3 pg (25.0-34.0); Mean Corpuscular Hgb Conc 32.8 g/dL (32.0-36.0); Mean Corpuscular Volume 92.4 fL (80.0-100.0); Mean Platelet Volume 9.9 fL (9.4-12.4); Platelet Count 198 K/uL (130-400); RDW Coefficient of Variation 12.9 % (11.5-14.5); RDW Standard Deviation 44.2 fL (36.4-46.3); Red Blood Count 4.72 M/uL (4.20-5.40); White Blood Count 14.13 K/ul (4.8-10.8)
--- NOTE | 2025-03-30 07:22 | Fluoroscopy Report ---
FL retrograde includes kub CLINICAL HISTORY: Cystoleft-sided cystourethrogram COMPARISON STUDY: CT of same day FLUOROSCOPY TIME: 122.4 seconds FLUOROSCOPY IMAGES: 5 EXPOSURE DOSE: 27.97 mGy FINDINGS: Status post placement of bilateral ureteral stents which appear to be in satisfactory posit ioning. IMPRESSION: Fluoroscopic assistance as above. ACT 112: Negative or not required by law. Electronically signed by: Ivan Thao M.D. 03/30/2025 7:21 AM
[2025-03-30] MEDS: VIBEGRON 75 MG TAB PO SCH (07:51)
[2025-03-30] MEDS: CHOLECALCIFEROL 25 MCG (1000 UNITS) TAB PO SCH (07:51)
[2025-03-30] MEDS: ASCORBIC ACID 500 MG TAB PO SCH (07:51)
[2025-03-30] MEDS: CITALOPRAM 20 MG TAB PO SCH (07:52)
[2025-03-30] MEDS: buPROPion XL 150 MG TABCR PO SCH (07:52)
[2025-03-30] MEDS: lisinopril 10 MG TAB PO SCH (08:04)
[2025-03-30 08:11] LABS: BUN Creatinine Ratio 13.7 (10-20); Calcium 9.1 mg/dl (8.6-10.3); Creatinine Clr Calc Pharmacy 39.3 ml/min
[2025-03-30] MEDS ORDERED: COLLAGEN 100% TOP SCH (09:00)
--- NOTE | 2025-03-30 10:19 | Urology Progress Note ---
Date of Service March 30, 2025 Assessment & Plan (1) Renal colic: (2) Nephrolithiasis: (3) Ureteral stent displacement: (4) Chronic interstitial cystitis: (5) Constipation: Plan Postop day 1 status post bilateral ureteroscopy. Left-sided dilation and stent placement right-sided stone treatment and extraction. Patient had displacement of one of the stents this morning early. Plan was initially to remove the stent either today or tomorrow as well. Reviewed extensively risk and benefits of bedside extraction stents were on catheter. Patient agreed to have removal this morning. Patient was prepped the strings from the stent were able to be grasped. One of the 2 stents appear to be partially out of the urethra. Both stents were able to be gently pulled utilizing their catheters and both stents were able to be removed completely without major issue. Patient did not have significant pain or other problems. Is having some mild hematuria. Did discuss this will be common. Is not having severe pain. As needed medications have helped significantly. Extensive conversation today. Approximately 50 minutes discussing ongoing issues concerns bother plans for further management as well as potential options and concerns. Also extensive review of patient's most recent labs vitals and the issues overnight. Did discuss extensively that the stones and obstructive issues may have been only part of her ongoing pain problems. Patient also with significant back issues has also developed some upper extremity numbness and tingling that may be related to chronic orthopedic spine and neck issues. Reviewed other concerns and issues. Discussed possible infectious issues. Currently urine does not appear to have active infection. Will likely need to have short course of antibiotics after treatment yesterday and stent removal today. Will likely need as needed medication for home. Will plan to monitor the patient as long as inpatient. If patient is discharged today or tomorrow we will plan to have patient follow-up in the next 3 to 4 weeks with [facility] for reevaluation. Bilateral tethered stents were removed this morning by myself. The patient was draped in the cathetered stents were able to be grasped they were gently retracted and removed. Both came out without major issue. One had been displaced but is impossible to tell if it was the right or the left. Both were able to be completely removed without major issue no major pain or no major problems. Patient tolerated the procedure without major issues or concerns. Please add code for bilateral tethered stent removal bedside. Admission and Anticipated Discharge Date Admission Date: March 29, 2025 Subjective Postop from stone treatment and stent placement for obstruction issues. Patient has been tolerating well. Has noticed some frequency and urgency. Has not had severe pain in the back and flank. Does have occasional burning and irritation. No severe episodes or major changes. No new nausea or vomiting. Had tolerated anesthesia without major problems Patient had tethered stent placed. This morning one of them became displaced. Plan was initially to try to remove the stents as soon as possible. Risk and benefits of bedside stent removal was discussed extensively with patient. Patient consented to remove stents especially with the 1 dislodged and partially coming out. Review of Systems Review of Systems: All systems reviewed & are unremarkable except as noted in HPI & below Physical Exam Physical Exam: General: Alert in no acute distress. HEENT: Normocephalic Atraumatic. Inspection normal. Cranial Nerves 2-12 Grossly intact. Normal inspection of face. Normal inspection of neck. Psychologic: Normal affect. Respiratory: Nonlabored. No use of accessory muscles. No tachypnea or dyspnea. Cardiovascular: No tachycardia Skin: [place] and Dry. No rashes or visible lesions. Extremities/Lymphatics: No edema Abdomen: Soft Non-distended. No rebound or guarding. Results & Data Vital Signs (Past 12 Hours) Vital Signs Temp Pulse Resp BP Pulse Ox O2 Del Method 03/30/25 07:01 36.6 C 74 18 123/71 96 Room Air 03/30/25 03:00 36.5 C 74 18 151/73 H 93 Room Air 03/29/25 23:00 36.7 C 69 18 124/76 94 Room Air PG Care Time/CCT Total # of Minutes Spent Total Time Spent with Patient: Total time spent is greater than 50% in coordination of care (as documented) at patient's floor/unit and/or counseling patient: Coding Level of Care Code 00473 SUB INP/OBS CARE 3/50MIN Diagnoses Renal colic N23 Nephrolithiasis N20.0 Ureteral stent displacement T83.122A Chronic interstitial cystitis N30.10 Constipation K59.00
[2025-03-30] MEDS: TAMSULOSIN HCL 0.4 MG CAP PO SCH (20:00)
--- NOTE | 2025-03-30 22:59 | Hospitalist Progress Note ---
Date of Service March 30, 2025 Assessment & Plan (1) Nephrolithiasis: Plan: Patient with bilateral back pain. UA is negative for uti patient will be admitted for ESWL. This was completed, stents placed and removed the next day. Patient will be monitored with likely discharge in the AM Plan Anxiety: resume home meds of celexa. HTN (hypertension): resume home meds Admission and Anticipated Discharge Date Admission Date: March 29, 2025 Subjective Patient reports feeling better but still with some pain. Patient is not ready for discharge today. Physical Exam Constitutional: WD/WN, vitals as above Respiratory: normal respiratory effort Neurologic: PERRL, EOMI, accommodation nl, no face palsy, no dysarthria Psychiatric: A+Ox3, euthymic affect Results & Data Results & Data Vital Signs (Past 12 Hours) Vital Signs Temp Pulse Resp BP Pulse Ox O2 Del Method 03/30/25 20:30 36.6 C 64 18 169/92 H 96 Room Air 03/30/25 20:00 Room Air 03/30/25 13:42 36.4 C L 71 18 118/67 95 Room Air PG Care Time/CCT Total # of Minutes Spent Total Time Spent with Patient: Total time spent is greater than 50% in coordination of care (as documented) at patient's floor/unit and/or counseling patient: Coding Level of Care Code 86979 SUB INP/OBS CARE 2/35MIN Diagnoses Nephrolithiasis N20.0
--- NOTE | 2025-03-31 06:49 | Discharge Summary ---
Discharge Summary Date of Service March 31, 2025 Principal Dx & Hospital Course #1 = Principal Diagnosis (1) Nephrolithiasis: Patient with bilateral back pain. UA is negative for uti patient will be admitted for ESWL. Plan Anxiety: resume home meds of celexa. HTN (hypertension): resume home meds Admission HPI Per Admitting Provider 84 yo female emerald PMH described below eports having bilateral flank pain for several weeks. She was to have lithotripsy yesterday but this was cancelled. Due to wroseneing pain, patient came to the ED Discharge Exam Constitutional WD/WN, vitals as above Respiratory normal respiratory effort Neurologic PERRL, EOMI, accommodation nl, no face palsy, no dysarthria Psychiatric A+Ox3, euthymic affect Discharge Plan Discharge Items Reason For Visit: KIDNEY STONE Condition on Discharge: Fair Follow-up/Referrals: Jacob Jones MD [Primary Care Provider] - 04/08/25 1:00 pm () Talon Dc, [Physician] - ([facility] WILL CALL YOU WITH A HOSPITAL FOLLOW UP VISIT.) Stand-Alone Forms: My [facility] Medications and DC Order Prescriptions: No Action simvastatin 40 mg tablet 40 mg PO HS Qty: 90 3RF cholecalciferol (vitamin D3) 2,000 unit tablet 4,000 units PO QAM ascorbic acid (vitamin C) 500 mg tablet 500 mg PO QAM collagen (bovine) 100 % Powder In Packet 1 ea TOPICAL QAM citalopram 10 mg tablet 10 mg PO QAM lisinopril 30 mg tablet 30 mg PO QAM bupropion HCl 150 mg tablet extended release 24 hr 150 mg PO QAM Gemtesa 75 mg tablet 75 mg PO QAM Admission Data Admit Date/Time: 03/29/25 13:11 Attending Provider: Fred Avery Admit Provider: Fred Avery Primary Care Provider: Jacob Jones Other Providers: Talon Dc; Zac Stauffer Hospital Stay Data Consultations 03/29/25 12:08 Consult Urology Routine 03/29/25 12:13 ED Decision to Admit Stat Procedures Performed Operation Date: 03/29/25 13:30 Actual Procedures p Cystoscopy, ureteronephroscopy, retrograde pyelogram, left ureteral dilation, laser destruction and extraction of stone,(Bilateral) - Talon Dc DO s insertion of bilateral ureteral stent catheter.(Bilateral) - Talon Dc, DO Diagnostic Imagining Performed 03/29/25 10:16 CT abd pelvis wo con Stat 03/29/25 12:28 FL retrograde includes kub Routine Coding Diagnoses Nephrolithiasis N20.0
[2025-03-31 09:07] VITALS: BP 154/73; PULSE 83; TEMP 98.4; O2SAT 95
[2025-03-31] MEDS: cephALEXin 500 MG CAP PO STA (10:31)
== END 2025-03-31 11:50 | disposition home or self-care (01) | DRG 660 ==
LOC: ED 09:50 → OR 13:10 → 3W 13:11 → OR 13:28